=== PATIENT | male | born 1940 | race Caucasian/White ===

== ENCOUNTER 2016-02-24 11:12 | Inpatient (IN) ==
--- NOTE | 2016-02-24 11:35 | Emergency Department Note ---
Disposition Clinical Impression: Falls, Confusion Chest pain Qualifiers: Chest pain type: unspecified Qualified Code(s): R07.9 - Chest pain, unspecified Disposition: Admitted As Inpatient Condition: Good General Adult HPI - General Chief complaint: ED Chest Pain Stated complaint: CP x3 months Time Seen by Provider: 02/24/16 11:27 Source: patient Limitations: no limitations Nursing Notes Reviewed: Yes Vital Signs Reviewed: Yes - History of Present Illness Pain Scale: 7 - Related Data Home Medications Medication Instructions Recorded Confirmed Amlodipine [Norvasc] 5 mg PO DAILY 02/24/16 02/24/16 Aspirin [Lo-Dose Aspirin EC] 81 mg PO DAILY 02/24/16 02/24/16 Donepezil [Aricept] 10 mg PO DAILY 02/24/16 02/24/16 Gabapentin [Neurontin] 300 mg PO BID 02/24/16 02/24/16 HYDROcodone/Acet 5/325 mg [[place] 1 tab PO TID PRN 02/24/16 02/24/16 5-325 mg] Insulin Glargine,Hum.rec.anlog 20 unit SQ HS 02/24/16 02/24/16 [Lantus Solostar] Metoprolol XL (24 HR) Succ [Toprol 25 mg PO DAILY 02/24/16 02/24/16 XL] [place]-3 Fatty Acids [Fish Oil] 300 mg PO DAILY 02/24/16 02/24/16 Pravastatin Sodium [Pravachol] 80 mg PO DAILY 02/24/16 02/24/16 Sertraline [Zoloft] 100 mg PO DAILY 02/24/16 02/24/16 Tizanidine HCl [Zanaflex] 2 mg PO BID 02/24/16 02/24/16 TraZODone 100 mg PO HS 02/24/16 02/24/16 Allergies Allergy/AdvReac Type Severity Reaction Status Date / Time No Known Allergies Allergy Verified 09/28/14 14:09 Past Medical History - Past Medical History Medical history: Reports: diabetes, hypertension Surgical history: Reports: appendectomy Psychiatric history: Reports: no psych history - Social History Smoking Status: Former smoker Smokeless Tobacco Status: No Alcohol use: Reports: none Drug use: Reports: none Physical Exam - General Limitations: no limitations General appearance: alert, in no apparent distress Course Vital Signs Temperature 98.6 F 02/24/16 11:15 Pulse Rate 69 02/24/16 11:15 Respiratory Rate 18 02/24/16 11:15 Blood Pressure 179/79 02/24/16 11:15 O2 Sat by Pulse Oximetry 95 02/24/16 11:15 Temperature 98.4 F 02/24/16 16:40 Pulse Rate 67 02/24/16 16:40 Respiratory Rate 16 02/24/16 16:40 Blood Pressure 148/81 02/24/16 16:40 O2 Sat by Pulse Oximetry 94 L 02/24/16 16:40 Oxygen Delivery Oxygen Delivery Room Air Medical Decision Making - MDM Narrative Medical decision making narrative: I examined this patient and my medical decision-making was reviewed with the ASSOCIATE PROFESSOR OF THEATRE/PA/Advanced Practice Nurse/Resident Physician. I agree with the documented findings, disposition and treatment plan as described except to the extent set forth below. Patient arrives today with intermittent chest management going on for about 3 months. Thinks he has a history of leukemia which he failed to tell some bowel. Follows with the oncology clinic here. He has CLL. He also complains of weakness which is generalized weakness which is had the past do not think he has a cardiac history as far as [place] but he has had a Holter monitor he describes does see cardiology here. He does not do much at home according to him so he does not know his chest pains only with exertion or not no pain currently. I do a cardiac workup on him also check LFTs CBC since he has the CLL and then reassess. He takes currently takes aspirin. Patient's agreement with this plan. 1131 hrs.: Patient has sinus rhythm with occasional PVCs. Does have a rate of 62, MS of 181, QRS is 97, QTC is 419, no signs of acute ischemia, compared this with an EKG that was done back in about a week ago and shows no changes except for rate. Chest X-Ray 02/24/16 11:25 IMPRESSION: 1. No acute cardiopulmonary disease. 2. Stable cardiomegaly. D/ / Elodia Egan MD / Elodia Egan MD Interpreting Provider: Elodia Egan MD 1250 hrs.: Patient's having a little bit of heartburn. He says the same Pain he has been having. His troponins negative I think this might be more GI he says that he like to try some Maalox which we did. That made him feel better. Thinking probably go home her and talk to him and family about going home versus staying in the hospital and see which they would prefer. 1400 hrs.: Talk to the patient at length he is worried regarding sending him home. He said he feels very foggy I think it may be due to medication is returning else looks good he did have an MRI of his head done recently that was apparently negative. He has had an MRI of his spine yesterday does not know the results of that I got him up and walking is little bit ataxic he tends to lean to the left and he has difficulty with his right foot. Is no foot drop however. He remained chest pain he said the Maalox helped his heartburn but notes back again. He is frustrated because he does not know who to follow up with the has multiple doctors but each one is a specialist and not really covering his problem. I think he might benefit for admission here with his chest pain on this been intermittent and also this confusion cloudiness and difficulty ambulating. He said he will would like to come in the hospital as he just does not know who to follow up with if we would send him home. We will speak to the hospitalist about this also. 1430 hrs.: Reviewed patient's MRI and he does have disc disease mainly on the right lumbar spine area. Maybe this is causing some of his difficulty with walking. We will go ahead and speak with hospitalist about admission. - Lab Data Result diagrams: 02/24/16 11:44 02/24/16 11:44 Lab Results 02/24/16 02/24/16 02/24/16 Range/Units 11:44 11:44 11:44 WBC 55.9 H* (4.3-11.1) K/mcL RBC 5.13 (4.19-5.50) M/mcL Hgb 14.2 (12.9-16.9) g/dL Hct 43.8 (37.5-50.1) % MCV 85.4 (83.0-100.0) fL MCH 27.7 L (28.0-33.3) pg MCHC 32.4 (31.6-35.5) g/dL RDW 14.6 H (11.5-14.5) % Plt Count 135 L (140-400) K/mcL MPV 11.6 (9.4-12.4) fL Immature Gran % [facility] Seg Neutrophils % 8.0 % Lymphocytes % 92.0 % Monocytes % [facility] Eosinophils % [facility] Basophils % [facility] Neutrophils # 4.5 (1.6-8.9) K/mcL Lymphocytes # 51.4 H (0.6-4.6) K/mcL Monocytes # [facility] Eosinophils # [facility] Basophils # [facility] Platelet Estimate Decreased L (Normal) Sodium 135 L (136-145) mEq/L Potassium 4.7 H (3.5-4.5) mEq/L Chloride 104 (98-109) mEq/L Carbon Dioxide 23 (19-29) mEq/L BUN 25 (8-26) mg/dL Creatinine 1.44 H (0.72-1.25) mg/dL Est GFR ( Amer) 58 L (> 60) Est GFR (Non-Af Amer) 48 L (> 60) BUN/Creatinine Ratio 17 (6-26) Glucose 177 H (70-99) mg/dL Calculated Osmolality 289 (280-300) Calcium 9.2 (8.6-10.8) mg/dL Total Bilirubin 0.6 (0.2-1.2) mg/dL Direct Bilirubin 0.3 (0.0-0.5) mg/dL Indirect Bilirubin 0.3 (0.0-1.2) mg/dL AST 26 (5-34) Units/L ALT 23 (0-55) Units/L Alkaline Phosphatase 75 (38-126) Units/L Troponin I 0.02 (0-0.03) ng/mL Serum Total Protein 7.1 (6.0-8.3) g/dL Albumin 4.1 (3.5-5.0) g/dL Globulin 3.0 (2.4-3.5) g/dL Albumin/Globulin Ratio 1.4 (1.1-2.2)
[2016-02-24 11:49] LABS: Hematocrit 43.8 % (37.5-50.1); Hemoglobin 14.2 g/dL (12.9-16.9); Mean Corpuscular HGB Conc 32.4 g/dL (31.6-35.5); Mean Corpuscular Hemoglobin 27.7 pg (28.0-33.3); Mean Corpuscular Volume 85.4 fL (83.0-100.0); Mean Platelet Volume 11.6 fL (9.4-12.4); Platelet Count 135 K/mcL (140-400); Red Blood Count 5.13 M/mcL (4.19-5.50); Red Cell Distribution Width 14.6 % (11.5-14.5)
[2016-02-24 12:07] LABS: Albumin 4.1 g/dL (3.5-5.0); Albumin/Globulin Ratio 1.4 (1.1-2.2); Bilirubin,Direct 0.3 mg/dL (0.0-0.5); Bilirubin,Indirect 0.3 mg/dL (0.0-1.2); Bilirubin,Total 0.6 mg/dL (0.2-1.2); Calcium 9.2 mg/dL (8.6-10.8); Potassium 4.7 mEq/L (3.5-4.5); Total Protein 7.1 g/dL (6.0-8.3)
[2016-02-24 12:12] LABS: Neutrophils # 4.5 K/mcL (1.6-8.9)
[2016-02-24 12:13] LABS: Lymphocytes # 51.4 K/mcL (0.6-4.6)
[2016-02-24 12:15] LABS: Platelet Estimate Decreased (Normal)
[2016-02-24] MEDS ORDERED: Mag Hydrox/Al Hydrox/Simeth 30 ML UDC PO ONE (12:39)
--- NOTE | 2016-02-24 13:49 | Emergency Department Note ---
Disposition Clinical Impression: Confusion Chest pain Qualifiers: Chest pain type: unspecified Qualified Code(s): R07.9 - Chest pain, unspecified Falls Qualifiers: Encounter type: initial encounter Qualified Code(s): W19.XXXA - Unspecified fall, initial encounter Disposition: Admitted As Inpatient Condition: Good General Adult HPI - General Chief complaint: ED Chest Pain Stated complaint: CP x3 months Time Seen by Provider: 02/24/16 11:27 Source: patient Limitations: no limitations Nursing Notes Reviewed: Yes Vital Signs Reviewed: Yes - History of Present Illness HPI Narrative: Patient here for evaluation of chest pain. Patient states that he has got left- sided chest pain that is sharp and has been going on for 3 months. Patient states this pain is not necessarily better or worse with exertion and is just there. Patient states that he has been here for workup has been negative and sent home in the past. Patient states he was recently here for stroke and was sent home. Patient states that the chest pain is not otherwise described wall and is not otherwise able to offer any helpful information. Pain Scale: 8 - Related Data Home Medications Medication Instructions Recorded Confirmed Amlodipine [Norvasc] 5 mg PO DAILY 02/24/16 02/24/16 Aspirin [Lo-Dose Aspirin EC] 81 mg PO DAILY 02/24/16 02/24/16 GlipiZIDE [Glipizide Xl] 5 PO DAILY 02/24/16 HYDROcodone/Acet 10/325 mg [[place] 1 tab PO Q6HR PRN 02/24/16 02/24/16 10-325 mg] Insulin Glargine,Hum.rec.anlog 100 unit SQ 02/24/16 02/24/16 [Lantus Solostar] Insulin Glargine,Hum.rec.anlog 100 unit SQ DAILY 02/24/16 02/24/16 [Lantus Solostar] Lisinopril [Zestril] 10 mg PO DAILY 02/24/16 02/24/16 Metoprolol [Lopressor] 25 mg PO DAILY 02/24/16 02/24/16 [place]-3 Fatty Acids [Fish Oil] 300 mg PO 02/24/16 02/24/16 Sertraline [Zoloft] 100 mg PO DAILY 02/24/16 02/24/16 TraZODone 100 mg PO HS 02/24/16 02/24/16 Allergies Allergy/AdvReac Type Severity Reaction Status Date / Time No Known Allergies Allergy Verified 09/28/14 14:09 Constitutional: Denies: fever, chills, weakness Eyes: Denies: eye pain ENT ED: Denies: ear pain Cardiovascular: Reports: chest pain Respiratory: Denies: cough Gastrointestinal: Denies: abdominal pain Genitourinary: Denies: urgency, dysuria Musculoskeletal: Denies: back pain Integumentary: Denies: rash, abrasion Neurological: Denies: headache, weakness Psychiatric: Denies: anxiety Endocrine: Denies: fatigue Past Medical History - Past Medical History Medical history: Reports: diabetes, hypertension Surgical history: Reports: appendectomy Psychiatric history: Reports: no psych history - Social History Smoking Status: Former smoker Smokeless Tobacco Status: No Alcohol use: Reports: none Drug use: Reports: none Physical Exam - General Limitations: no limitations General appearance: alert, in no apparent distress - Head Head exam: atraumatic - Eye Eye exam: Present: normal appearance - ENT ENT exam: normal exam - Neck Neck exam: Present: normal inspection, full ROM - Chest Chest inspection: Present: normal inspection, symmetric chest wall rise. Absent : tenderness - Respiratory Respiratory exam: Present: normal lung sounds bilaterally. Absent: respiratory distress - Cardiovascular Cardiovascular exam: Present: regular rate, normal rhythm - Abdominal Exam Abdominal exam: Present: soft, Non-Tender - Extremities Exam Extremities exam: Present: normal inspection, full ROM - Back Exam Back exam: Present: normal inspection, full ROM, tenderness - Neurological Exam Neurological exam: Present: alert, oriented X3, CN II-XII intact, normal gait. Absent: motor sensory deficit - Psychiatric Psychiatric exam: Present: normal affect, normal mood - Skin Skin exam: Present: warm, dry Course - Reevaluation(s) Reevaluation #1: Patient asking for something for his heartburn. Patient notified of negative workup at this time. Patient had a recent cardiac workup that was negative for acute ischemia or infarction. Medical records also showed this patient has leukemia which she did not mention during the initial history. Patient states that nobody is "doing a damn thing". Upon review of his records is apparent that she has stable CLL that they are monitoring. Nobody has had any recent medication changes that would cause these symptoms. Upon reevaluation of the patient patient states that she feels like he is on a cloud feels like he is having trouble walking and he feels that he is unsafe to go home. Patient states that none of these symptoms are new previous to his extensive workup at this facility however at this time he says that he can no longer go on living at home with this feeling. Patient is not homicidal or suicidal at this time. He is just tired of being sick. Reevaluation #2: Maalox improved patient's symptoms significantly however they have returned. The patient states that he has fallen several times and with mental cloudiness - he cannot go home. The patients symptoms have undergone extensive workup in the past several weeks and has been found to have disk and degenerative disease on the right possibly explaining symptoms and unsteadiness on feet. Patient will need further evaluation of the hospital. - Consultations Consultation #1: Discussed with Dr. Morales. At this time requested to speak with Dr. Jameson regarding admission. The patient was accepted for admission. See attending note. Vital Signs Temperature 98.6 F 02/24/16 11:15 Pulse Rate 69 02/24/16 11:15 Respiratory Rate 18 02/24/16 11:15 Blood Pressure 179/79 02/24/16 11:15 O2 Sat by Pulse Oximetry 95 02/24/16 11:15 Temperature 98.6 F 02/24/16 11:15 Pulse Rate 69 02/24/16 14:12 Respiratory Rate 16 02/24/16 14:12 Blood Pressure 168/87 02/24/16 14:12 O2 Sat by Pulse Oximetry 97 02/24/16 14:12 Oxygen Delivery Oxygen Delivery Room Air Medical Decision Making - Lab Data Result diagrams: 02/24/16 11:44 02/24/16 11:44 Lab Results 02/24/16 02/24/16 02/24/16 Range/Units 11:44 11:44 11:44 WBC 55.9 H* (4.3-11.1) K/mcL RBC 5.13 (4.19-5.50) M/mcL Hgb 14.2 (12.9-16.9) g/dL Hct 43.8 (37.5-50.1) % MCV 85.4 (83.0-100.0) fL MCH 27.7 L (28.0-33.3) pg MCHC 32.4 (31.6-35.5) g/dL RDW 14.6 H (11.5-14.5) % Plt Count 135 L (140-400) K/mcL MPV 11.6 (9.4-12.4) fL Immature Gran % [employer] Seg Neutrophils % 8.0 % Lymphocytes % 92.0 % Monocytes % [employer] Eosinophils % [employer] Basophils % [employer] Neutrophils # 4.5 (1.6-8.9) K/mcL Lymphocytes # 51.4 H (0.6-4.6) K/mcL Monocytes # [employer] Eosinophils # [employer] Basophils # [employer] Platelet Estimate Decreased L (Normal) Sodium 135 L (136-145) mEq/L Potassium 4.7 H (3.5-4.5) mEq/L Chloride 104 (98-109) mEq/L Carbon Dioxide 23 (19-29) mEq/L BUN 25 (8-26) mg/dL Creatinine 1.44 H (0.72-1.25) mg/dL Est GFR ( Amer) 58 L (> 60) Est GFR (Non-Af Amer) 48 L (> 60) BUN/Creatinine Ratio 17 (6-26) Glucose 177 H (70-99) mg/dL Calculated Osmolality 289 (280-300) Calcium 9.2 (8.6-10.8) mg/dL Total Bilirubin 0.6 (0.2-1.2) mg/dL Direct Bilirubin 0.3 (0.0-0.5) mg/dL Indirect Bilirubin 0.3 (0.0-1.2) mg/dL AST 26 (5-34) Units/L ALT 23 (0-55) Units/L Alkaline Phosphatase 75 (38-126) Units/L Troponin I 0.02 (0-0.03) ng/mL Serum Total Protein 7.1 (6.0-8.3) g/dL Albumin 4.1 (3.5-5.0) g/dL Globulin 3.0 (2.4-3.5) g/dL Albumin/Globulin Ratio 1.4 (1.1-2.2)
[2016-02-24] MEDS ORDERED: Naloxone 0.4 MG/ML INJ IVP PRN (15:57)
[2016-02-24] MEDS ORDERED: Acetaminophen 325 MG TABLET PO PRN (15:57)
[2016-02-24] MEDS ORDERED: Dextrose Gel 15 GM PO PRN ×2 (16:02)
[2016-02-24] MEDS ORDERED: *HR* Dextrose 50 % in Water (Syg) 50 ML SYRINGE IVP PRN (16:02)
[2016-02-24] MEDS ORDERED: D5% in Water 1,000 ML IV PRN (16:02)
--- NOTE | 2016-02-24 16:44 | Internal Med History&Physical ---
<Gracie Pace - Last Filed: 02/24/16 17:46> Date of Encounter: 02/24/16 Time of Encounter: 16:29 Assessment and Plan (1) Chest pain Current visit: Yes Status: Acute Patient presented with complaints of chest pressure on and off for last several months. 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 EKG with no changes, initial troponin negative. CXR with no acute cardiopulmonary disease. denies SOB. continuous reclaimer and pulse oximetry serial troponins titrate O2 to maintain O2 sat > 92% Qualifiers: Chest pain type: precordial chest pain Qualified Code(s): R07.2 - Precordial pain (2) Altered mental status Current visit: Yes Status: Acute Patient reporting "fogginess", when asked what that meant, he stated he felt like he "wasn't all there" He is complaining of poor sleep, bad dreams, lip tingling, ear ringing and chronic left leg weakness. On assessment, he is A & O x 3. Neurological exam grossly normal. He has had extensive imaging work up previously for similar symptoms. Patient reports he hasn't been eating well recently. His symptoms may be related to dehydration, polypharmacy, vitamin deficiencies, less likely due to infection . Will give him IV fluids for hydration. Will hold his trazodone, zanaflex, neurontin, and aricept. will check vitamin B12, folate, TSH, RPR. Qualifiers: Altered mental status type: unspecified Qualified Code(s): R41.82 - Altered mental status, unspecified (3) Accelerated essential hypertension Current visit: Yes Status: Acute Blood pressure on arrival to ED was 179/79, and continued to be elevated with 165/115, 151/94. It has come down to 141/84. He is on a continuous reclaimer. Continue home dose of metoprolol and amlodipine (4) Chronic lymphocytic leukemia (CLL), B-cell Current visit: No Status: Chronic Following with oncology every 6 months. Stable WBC count. Qualifiers: Leukemia Active/Remission status: without remission Qualified Code(s): C91.10 - Chronic lymphocytic leukemia of B-cell type not having achieved remission (5) DVT prophylaxis Current visit: Yes Status: Acute encourage ambulation with assistance anti-embolic stockings heparin 5,000u SQ BID Internal Medicine - H&P: HPI Chief complaint: chest pain, altered mental status Admitted From: Emergency Dept Plans for Post Hospital Care: Home History of present illness: Mr. Vidal is a 75 year old male with history of HTN, type 2 diabetes, CLL ( stable), CKD3, who presented to the ED with complaints of Chest pain on and off for the last 3 months, as well as difficulty walking for several months. He has presented to the ED with similar complaints several times. He reports he has chest pain, described as pressure, on and off, not associated or relieved by anything that he can articulate. He has been following with Dr. Mcclelland in cardiology and has had recent stress test and abarca monitor. His EKG in the ED showed no changes from previous and his initial troponin was negative at 0.02. He also complains of difficulty walking with left leg weakness. This has also been going on for several months, and he has had a work up including MRI of the spine, MRI of the head, MRA of head and neck. The MRI of the spine showed lumbar disc disease which explain his symptom of left leg weakness. MRI of head showed no acute abnormality, stable diffuse parenchymal volume loss and moderate chronic white matter microvascular changes. He was referred to [facility] on previous encounters and reports he does follow with them. He is reporting lip tingling on and off and bilateral ear ringing on and off, also going on for about a month. He complains of feeling "foggy" and lightheaded at times. He denies any falls or loss of consciousness. He denies any fever, chills, sweats, body aches. He reports he has not been sleeping well and when he does sleep, he has crazy dreams. On exam, he is alert and oriented x 3, pleasant, lungs clear bilaterally, heart with regular rate and rhythm. He did not have pronator drift, negative romberg sign, he did lean left while walking but did not appear to have any balance issues. Past Med Surg Social Fam HX - Past Medical History Medical history: cancer (CLL), dementia, diabetes, hypertension, renal disease Psychiatric history: depression - Past Surgical History Surgical History: appendectomy, orthopedic, other (spinal fusion) - Social History Smoking Status: Former smoker Smokeless Tobacco Status: No Alcohol use: none Drug use: none - Family History Mother Living Status: Hx Family Cardiac Disorders: Yes (HTN) Internal Medicine - H&P: Meds Amlodipine [Norvasc] 5 mg PO DAILY 02/24/16 [History] Aspirin [Lo-Dose Aspirin EC] 81 mg PO DAILY 02/24/16 [History] Donepezil [Aricept] 10 mg PO DAILY 02/24/16 [History] Gabapentin [Neurontin] 300 mg PO BID 02/24/16 [History] HYDROcodone/Acet 5/325 mg [[place] 5-325 mg] 1 tab PO TID PRN 02/24/16 [History] Insulin Glargine,Hum.rec.anlog [Lantus Solostar] 20 unit SQ HS 02/24/16 [History ] Metoprolol XL (24 HR) Succ [Toprol XL] 25 mg PO DAILY 02/24/16 [History] [place]-3 Fatty Acids [Fish Oil] 300 mg PO DAILY 02/24/16 [History] Pravastatin Sodium [Pravachol] 80 mg PO DAILY 02/24/16 [History] Sertraline [Zoloft] 100 mg PO DAILY 02/24/16 [History] Tizanidine HCl [Zanaflex] 2 mg PO BID 02/24/16 [History] TraZODone 100 mg PO HS 02/24/16 [History] Allergies No Known Allergies Allergy (Verified 09/28/14 14:09) All Systems PM: A 10-system review of systems was performed and is negative for pertinent findings except as documented above in the HPI. - Constitutional Constitutional: weakness, no chills, no fever(s), no night sweats - EENT Eyes: no change in vision, no discharge, no pain, no photophobia Ears: tinnitus Nose, mouth and throat: no dysphagia, no nasal discharge, no neck pain, no sore throat - Cardiovascular Cardiovascular ROS IM: chest pain, lightheadedness, no diaphoresis, no dyspnea, no palpitations, no syncope - Respiratory Respiratory: no cough, no dyspnea, no wheezing, no excessive phlegm production - Gastrointestinal Gastrointestinal: no abdominal pain, no diarrhea, no hematemesis, no hematochezia, no melena, no nausea, no vomiting - Musculoskeletal Musculoskeletal ROS IM: numbness, tingling Additional comments: reports tingling in his lips and numbness and tingling in BLE - chronic - Integumentary Integumentary IM: no rash, no unusual bruising - Neurological Neurological ROS: abnormal gait (leaning left), focal weakness (left leg), tingling (in his lips), no confusion, no convulsions, no numbness, no tremor(s) - Hematologic/Lymphatic Hematologic/Lymphatic: no easy bruising - Constitutional Vitals: Temp Pulse Resp BP Pulse Ox 98.6 F 69 18 141/84 97 02/24/16 11:15 02/24/16 14:12 02/24/16 15:28 02/24/16 15:28 02/24/16 14:12 General appearance: Present: A&O X 3, pleasant, no acute distress - Head Head exam: Present: atraumatic, normocephalic - Eye Eye exam: Present: PERRL, conjuntiva pink, sclera anicteric Pupils: Present: PERRL - Neck Neck exam general surgery: Present: supple, trachea midline. Absent: lymphadenopathy - Respiratory Respiratory exam: Present: CTAB. Absent: accessory muscle use, rales, rhonchi, wheezes - Cardiovascular Cardiovascular exam: Present: RRR, +S1, +S2. Absent: diastolic murmur, gallop, rubs, systolic murmur - GI/Abdominal GI/Abdominal exam: Present: normal bowel sounds, soft, no peritoneal signs. Absent: distended, tenderness - Extremities Exam Extremities exam: Present: warm, radial pulses palpable and symetrical. Absent : calf tenderness, cyanotic, pedal edema - Neurological Exam Neurological exam: Present: CN II-XII intact, oriented X3, no focal deficits. Absent: pronater drift, facial droop, speech deficit - Expanded Neurological Exam Cranial Nerves: EOM's intact PM: Normal, gag reflex PM: Normal, tongue deviation PM: Normal Cerebellar function: finger to nose: Normal, Romberg: Normal - Skin Skin exam: Present: dry, intact Internal Med - H&P Results - Labs CBC & Chem 7: 02/24/16 11:44 02/24/16 11:44 <Mauro Morales - Last Filed: 02/24/16 18:46> Date of Encounter: 02/24/16 Internal Medicine - H&P: HPI History of present illness: Mr. Vidal is a 75 year old male All Systems PM: A 10-system review of systems was performed and is negative for pertinent findings except as documented above in the HPI. - Constitutional Vitals: Temp Pulse Resp BP Pulse Ox 98.4 F 67 16 148/81 94 L 02/24/16 16:40 02/24/16 16:40 02/24/16 16:40 02/24/16 16:40 02/24/16 16:40 Internal Med - H&P Results - Labs CBC & Chem 7: 02/24/16 11:44 02/24/16 11:44 - Attending Attestation I have seen and examined this patient independently. I have discussed the case with the Nurse Practitioner, Gracie Pace. I agree with the data gathering in the HPI, physical examination findings, assessment and plan as documented by our HOUSEHOLD APPLIANCE INSTALLER. Chest pain ongoing for 3 months and possible side effects of polypharmacy alog with uncontrolled HTN.
[2016-02-24] MEDS: Insulin LISPRO 300 UNITS/3 ML VIAL SQ SCH (17:02)
[2016-02-24 17:35] LABS: Magnesium 1.9 mg/dL (1.6-2.6); Phosphorous 3.3 mg/dL (2.3-4.7)
[2016-02-24] MEDS ORDERED: 0.9 % Sodium Chloride 1,000 ML IVC SCH (17:45)
[2016-02-24] MEDS: *HR* Heparin 5,000 UNIT/ML VIAL SQ SCH (18:12)
[2016-02-24 19:36] LABS: Folate 18.1 ng/mL (7.0-31.4)
[2016-02-24] MEDS ORDERED: Ondansetron ODT 4 MG TAB.RAPDIS SL PRN (19:51)
[2016-02-24] MEDS ORDERED: Insulin DETEMIR 100 UNIT/ML X5UNITS SQ SCH (21:00)
[2016-02-24] MEDS ORDERED: Insulin LISPRO 300 UNITS/3 ML VIAL SQ SCH (21:00)
[2016-02-24] MEDS ORDERED: Gabapentin 300 MG CAPSULE PO SCH (21:00)
[2016-02-24] MEDS ORDERED: traZODone 50 MG TABLET PO SCH ×2 (21:00→21:15)
[2016-02-24] MEDS ORDERED: tiZANidine 4 MG TABLET PO SCH (21:00)
[2016-02-24] MEDS ORDERED: GI Cocktail 40 ML EACH PO ONE (22:07)
[2016-02-24] MEDS: *HR* HYDROcodone/Acet 5/325 mg TABLET PO PRN (22:29)
[2016-02-25 00:27] LABS: Eosinophils % 0.1 %; Immature Granulocytes % 0.2 % (0-4); Platelet Count 118 K/mcL (140-400); Red Cell Distribution Width 14.6 % (11.5-14.5)
[2016-02-25 00:29] LABS: Basophils # 0.1 K/mcL (0.0-0.2); Basophils % 0.2 %; Hematocrit 38.7 % (37.5-50.1); Hemoglobin 12.5 g/dL (12.9-16.9); Immature Platelets 8.9 % (1.1-6.1); Lymphocytes # 36.7 K/mcL (0.6-4.6); Lymphocytes % 86.7 %; Mean Corpuscular HGB Conc 32.3 g/dL (31.6-35.5); Mean Corpuscular Hemoglobin 28.2 pg (28.0-33.3); Mean Corpuscular Volume 87.4 fL (83.0-100.0); Mean Platelet Volume 11.6 fL (9.4-12.4); Monocytes % 2.2 %; Red Blood Count 4.43 M/mcL (4.19-5.50); Segmented Neutrophils % 10.6 %
[2016-02-25 00:30] LABS: Monocytes # 0.9 K/mcL (0.0-1.3); Neutrophils # 4.5 K/mcL (1.6-8.9)
[2016-02-25 00:39] LABS: Calcium 8.4 mg/dL (8.6-10.8); Potassium 4.1 mEq/L (3.5-4.5)
[2016-02-25 00:44] LABS: Platelet Estimate Slight Decrease (Normal); Reactive Lymphocytes Present (Not Present); Smudge Cells Present (Not Present)
[2016-02-25 00:45] LABS: Basophilic Stippling 1+ (Not Present); Polychromasia 1+ (Not Present)
[2016-02-25] MEDS: *HR* HYDROcodone/Acet 5/325 mg TABLET PO PRN (04:09)
[2016-02-25] MEDS: *HR* Heparin 5,000 UNIT/ML VIAL SQ SCH (05:54)
[2016-02-25 07:31] VITALS: BP 138/76
[2016-02-25] MEDS ORDERED: Tetrahydrozoline 15 ML BOTTLE LEFT EYE PRN (08:09)
[2016-02-25] MEDS ORDERED: Tetrahydrozoline 15 ML BOTTLE RIGHT EYE PRN (08:09)
[2016-02-25] MEDS ORDERED: Sucralfate 1 GM TABLET PO SCH (08:30)
[2016-02-25] MEDS ORDERED: Aspirin Enteric Coated 81 MG Tablet PO SCH (09:00)
[2016-02-25] MEDS ORDERED: amLODIPine 5 MG TABLET PO SCH (09:00)
[2016-02-25] MEDS ORDERED: Gabapentin 300 MG CAPSULE PO SCH (09:00)
[2016-02-25] MEDS ORDERED: Thiamine (B-1) 100 MG TABLET PO SCH (09:00)
[2016-02-25] MEDS ORDERED: Metoprolol XL (24 HR) Succ 25 MG TAB.ER.24H PO SCH (09:00)
[2016-02-25] MEDS ORDERED: (Omega-3 Fatty Acids [Fish Oil] 300 MG) PO SCH (09:00)
--- NOTE | 2016-02-25 09:43 | Cardiology Consult Note ---
Date of Encounter: 02/25/16 Time of Encounter: 09:00 Assessment and Plan (1) Chest pain Current Visit: Yes Status: Acute C/o chronic atypical chest pain symptoms that have increased over the last week. Agree with adding PPI to medication regimen. Describes discomfort after eating. Recent cardiac work-up negative. Troponin negative x 3. EKG shows NSR with no ST changes. No further cardiac testing recommended at this time. Continue toprol XL for history of NSVT and SVT seen on holter earlier this year. Out-pt f/u with Dr. Reich in 2 weeks. Qualifiers: Chest pain type: precordial chest pain Qualified Code(s): R07.2 - Precordial pain (2) NSVT (nonsustained ventricular tachycardia) Current Visit: No Status: Chronic 24 hour telemetry review shows NSR-SB. Avg HR 62 BPM. Occasional HR as low as 46 bpm during nocturnal hours. No pauses. No recurrent NSVT seen. Max HR 95 bpm. (3) SVT (supraventricular tachycardia) Current Visit: Yes Status: Acute Discussion w patient/family: The assessment and plan as outlined above was discussed with the patient and/or family members who expressed understanding and agreement. All questions were answered. Thank you for involving us in the care of your patient. Please call with any questions. History of Present Illness Consult date: 02/25/16 Consult reason: Chest pain Chief complaint: Chest pain History of present illness: Mr. Vidal is a 75 year old male with a past medical history of NSVT, SVT, essential hypertension, CLL, diabetes mellitus, CKD and hypertriglyceridemia. He presents with intermittent chest pain over the last three months. His pain is left sided to mid-sternal associated with mid-sternal burning occurring at rest. He denies exertional chest pain. He does think it is in relation to eating. His pain started shortly after eating [employer] his daughter brought him yesterday. He also noticed burning in his throat this morning after drinking coffee this morning. His discomfort was relieved with a GI cocktail. He also has multiple other chronic complaints including chronic back pain, difficulty walking, numbness in his lips when he has high blood sugars, and lack of appetite. He feels he had increased in overall symptoms after starting a new medication. He was started on three new medications around the same time including toprol XL for NSVT. Previous cardiac testing: Holter monitor 09/15/2015 demonstrated sinus rhythm with one 12 beat episode of nonsustained ventricular tachycardia. Frequent PACs and occasional episodes of SVT were noted as well, longest SVT 24 beats. An echocardiogram obtained on 09/15/2015 demonstrated an EF of 65%, mild concentric LVH, mild AI, and probable severe pulmonary hypertension. Lexiscan nuclear stress test 09/28/2015: EF 63%. Imaging negative for ischemia or prior infarct. Past Med Surg Social Fam HX - Past Medical History Medical history: cancer (CLL), dementia, diabetes, hypertension, renal disease, SVT, other (NSVT) Psychiatric history: depression - Past Surgical History Surgical History: appendectomy, orthopedic, other (spinal fusion) - Social History Smoking Status: Former smoker Smokeless Tobacco Status: No Alcohol use: none Drug use: none - Family History Mother Living Status: Hx Family Cardiac Disorders: Yes (HTN) Medications and Allergies Amlodipine [Norvasc] 5 mg PO DAILY 02/24/16 [History] Aspirin [Lo-Dose Aspirin EC] 81 mg PO DAILY 02/24/16 [History] Donepezil [Aricept] 10 mg PO DAILY 02/24/16 [History] Gabapentin [Neurontin] 300 mg PO BID 02/24/16 [History] HYDROcodone/Acet 5/325 mg [[place] 5-325 mg] 1 tab PO TID PRN 02/24/16 [History] Insulin Glargine,Hum.rec.anlog [Lantus Solostar] 20 unit SQ HS 02/24/16 [History ] Metoprolol XL (24 HR) Succ [Toprol XL] 25 mg PO DAILY 02/24/16 [History] [place]-3 Fatty Acids [Fish Oil] 300 mg PO DAILY 02/24/16 [History] Pravastatin Sodium [Pravachol] 80 mg PO DAILY 02/24/16 [History] Sertraline [Zoloft] 100 mg PO DAILY 02/24/16 [History] Tizanidine HCl [Zanaflex] 2 mg PO BID 02/24/16 [History] TraZODone 100 mg PO HS 02/24/16 [History] Propylene Glycol/Peg 400 [Lubricant Eye Drops] 15 ml OP TID 02/25/16 [History] Allergies No Known Allergies Allergy (Verified 09/28/14 14:09) All Systems Review: A 10-system review of systems was performed and is negative for pertinent findings except as documented above in the HPI. Physical Examination Vital Signs, Last 4 Hours Temp Pulse Resp BP Pulse Ox 02/25/16 07:31 98.3 F 61 14 138/76 95 General: Conversant, No Apparent Distress HEENT: Atraumatic, Normocephaly, Mucus Membranes Moist Neck: No JVD, Normal carotid pulses Cardiac: Reg Rate and Rhythm, Normal S1 and S2, No Murmur Lungs: Normal Breath Sounds, No Wheeze, Rales, Rhonchi Neuro: Alert and responsive, No focal deficits noted Abdomen: Soft, Non-Tender Skin: No rashes noted on visualized skin Musculoskeletal: No Chest Wall Tenderness Extremities: No Clubbing, No Cyanosis, No Edema, Normal Pulses Results 02/25/16 00:20 02/25/16 00:20 Lab Results 02/24/16 02/25/16 02/25/16 18:36 00:20 00:20 WBC 42.3 H* Hgb 12.5 L D Hct 38.7 Plt Count 118 L Sodium Potassium Chloride Carbon Dioxide BUN Creatinine Glucose Calcium Troponin I 0.02 TSH 0.924 02/25/16 00:20 WBC Hgb Hct Plt Count Sodium 136 Potassium 4.1 Chloride 104 Carbon Dioxide 25 BUN 25 Creatinine 1.55 H Glucose 162 H Calcium 8.4 L Troponin I TSH - Imaging and Cardiology Stress Test: report reviewed Echo: report reviewed Cardiac cath: report reviewed - EKG Interpretation EKG results cardiology: personally reviewed (SR with no ST changes.) Consult Discharge Plan - Plan Referrals: Yaa Nathan AND [employer] [Primary Care Provider] -
[2016-02-25] MEDS: Insulin LISPRO 300 UNITS/3 ML VIAL SQ SCH (10:11)
[2016-02-25] MEDS ORDERED: Sennosides 8.6 MG TABLET PO SCH (10:15)
--- NOTE | 2016-02-25 10:52 | Discharge Summary ---
Date of Encounter: 02/25/16 Time of Encounter: 10:55 - Discharge Diagnosis (1) Atypical chest pain Priority: Primary Status: Acute (2) Constipation Priority: Secondary Status: Acute Qualifiers: Constipation type: slow transit constipation Qualified Code(s): K59.01 - Slow transit constipation (3) Gastritis Priority: Primary Status: Acute Qualifiers: Gastritis type: unspecified gastritis Gastritis bleeding: without bleeding Qualified Code(s): K29.70 - Gastritis, unspecified, without bleeding (4) Physical deconditioning Priority: Secondary Status: Acute - Discharge Medications Prescriptions: Ergocalciferol (VITAMIN D2) [Drisdol (50,000 Unit)] 50,000 unit PO QWEEK #15 capsule Omeprazole [PriLOSEC] 20 mg PO DAILY #90 capsule.dr Polyethylene Glycol 3350 [MiraLAX] 17 gm PO DAILY PRN #30 powd.pack PRN Reason: Constipation Thiamine (B-1) [Vitamin B-1] 100 mg PO DAILY #90 tablet Tizanidine HCl [Zanaflex] 2 mg PO HS #30 capsule Home Medications: Amlodipine [Norvasc] 5 mg PO DAILY 02/24/16 [History] Aspirin [Lo-Dose Aspirin EC] 81 mg PO DAILY 02/24/16 [History] Donepezil [Aricept] 10 mg PO DAILY 02/24/16 [History] Gabapentin [Neurontin] 300 mg PO BID 02/24/16 [History] HYDROcodone/Acet 5/325 mg [[place] 5-325 mg] 1 tab PO TID PRN 02/24/16 [History] Insulin Glargine,Hum.rec.anlog [Lantus Solostar] 20 unit SQ HS 02/24/16 [History ] Metoprolol XL (24 HR) Succ [Toprol Xl] 25 mg PO DAILY 02/24/16 [History] [place]-3 Fatty Acids [Fish Oil] 300 mg PO DAILY 02/24/16 [History] Pravastatin Sodium [Pravachol] 80 mg PO DAILY 02/24/16 [History] Sertraline [Zoloft] 100 mg PO DAILY 02/24/16 [History] Ergocalciferol (VITAMIN D2) [Drisdol (50,000 Unit)] 50,000 unit PO QWEEK #15 capsule 02/25/16 [Rx] Omeprazole [PriLOSEC] 20 mg PO DAILY #90 capsule. 02/25/16 [Rx] Polyethylene Glycol 3350 [MiraLAX] 17 gm PO DAILY PRN #30 powd.pack 02/25/16 [Rx ] Propylene Glycol/Peg 400 [Lubricant Eye Drops] 15 ml OP TID 02/25/16 [History] Thiamine (B-1) [Vitamin B-1] 100 mg PO DAILY #90 tablet 02/25/16 [Rx] Tizanidine HCl [Zanaflex] 2 mg PO HS #30 capsule 02/25/16 [Rx] TraZODone 50 mg PO HS tablet 02/25/16 [Rx] Allergies/Adverse Reactions: Allergies No Known Allergies Allergy (Verified 09/28/14 14:09) Date of admission: 02/24/16 18:02 Primary care physician: Yaa Nathan CNP Consults: 02/25/16 08:13 Consult to Cardiology [CONS] Routine Comment: Consulting Provider: [facility] Reason for Consult: Chest pain x 3 month Call Completed: No Discharging clinician: Zina Mccall - Patient Status Disposition: Home, Self-Care Condition: Good Functional capacity at discharge: independent ambulation Overall status at discharge: patient is back to baseline - Discharge Instructions Instructions: Omeprazole (By mouth), Thiamine (Vitamin B-1) (By mouth), Tizanidine (By mouth), Polyethylene Glycol 3350 (By mouth), Vitamin B Complex ( By mouth), Vitamin D (By mouth), Chest Pain (GEN), Gastritis (GEN), Fall Prevention (GEN) Follow Up With: Yaa Nathan CNP [Primary Care Provider] - (A web request was made for f/u in 2 weeks. If you don't hear from them in a few days please contact number provided ) Ricky Reich DO [Partnered Physician] - (Web request sent for an appointment ) Additional Instructions: Follow up with cardiology, outpatient physical therapy 3 times a week - Diet and Activity Activity: resume usual activities as tolerated Diet: diabetic diet Hospital course: Mr. Vidal is a 75 year old male with a past medical history of NSVT, SVT, essential hypertension, CLL, diabetes mellitus, CKD and hypertriglyceridemia. He presents with intermittent chest pain over the last three months. His pain is mid-sternal associated with mid-sternal burning occurring at rest. He denies exertional chest pain. He does think it is in relation to eating. His pain started shortly after eating Friday . He also noticed burning in his throat this morning after drinking coffee this morning. His discomfort was relieved with a GI cocktail. He also has multiple other chronic complaints including chronic back pain, difficulty walking . Patient is feeling better today. Patient states he is drinking 2 cups of coffee every morning. Patient denies any shortness of breath or palpitation. Patient denies any orthopnea or paroxysmal nocturnal dyspnea. Patient denies any focal motor or sensory changes. He is complaining of generalized weakness. Patient on multiple medication which can cause drowsiness and physical deconditioning and include Neurontin and Zanaflex. Does was reduced. Need to be titrated down as possible with family doctor. Patient was able to ambulate independent without any brought in today. Protonix was ordered for the patient. Patient was complaining of constipation for last 3 days he was given, uday and . MiraLAX . Last cardiac workup include Holter monitor 09/15/2015 demonstrated sinus rhythm with one 12 beat episode of nonsustained ventricular tachycardia. Frequent PACs and occasional episodes of SVT were noted as well, longest SVT 24 beats. An echocardiogram obtained on 09/15/2015 demonstrated an EF of 65%, mild concentric LVH, mild AI, and probable severe pulmonary hypertension.Lexiscan nuclear stress test 09/28/2015: EF 63%. Imaging negative for ischemia or prior infarct.Troponin negative x 3.EKG shows NSR with no ST changes. Cardiology team evaluated the patient is . He stated No further cardiac testing recommended at this time.Continue toprol XL for history of NSVT and SVT seen on holter earlier this year. Out-pt f/u with Dr. Reich in 2 weeks. I had long discussion with patient about avoiding caffeinated materials. Discussed with patient about exercise and physical therapy home physical therapy. Discussed with staff about scheduling outpatient physical therapy. Discussed about laxatives Ii was ordered as needed as an outpatient. - Time Spent with Patient Total time spent providing and/or coordinating discharge services: - Constitutional Vitals: Temp Pulse Resp BP Pulse Ox 98.3 F 61 14 138/76 95 02/25/16 07:31 02/25/16 07:31 02/25/16 07:31 02/25/16 07:31 02/25/16 07:31 General appearance: Present: A&O X 3, pleasant, no acute distress - Head Head exam: Present: atraumatic, normocephalic - Neck Neck exam general surgery: Present: supple, trachea midline. Absent: lymphadenopathy - Respiratory Respiratory exam: Present: CTAB. Absent: accessory muscle use, rales, rhonchi, wheezes - Cardiovascular Cardiovascular exam: Present: RRR, +S1, +S2. Absent: diastolic murmur, gallop, rubs, systolic murmur - GI/Abdominal GI/Abdominal exam: Present: normal bowel sounds, soft, no peritoneal signs. Absent: distended, tenderness - Neurological Exam Neurological exam: Present: CN II-XII intact, oriented X3, no focal deficits. Absent: pronater drift, facial droop, speech deficit - Skin Skin exam: Present: dry, intact
--- NOTE | 2016-02-26 10:43 | Electrocardiograph Report ---
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
== END 2016-02-25 13:00 | disposition home or self-care (01) | DRG 313 ==
LOC: 3BNU 11:12 → EMEROO 11:12 → 3BNU 15:45
PROVIDERS: ADMIT Internal Medicine; ATTEND Internal Medicine

== ENCOUNTER 2016-06-15 10:40 | Inpatient (IN) ==
[2016-06-15] MEDS ORDERED: 0.9 % Sodium Chloride 1,000 ML IVC ONE (11:10)
--- NOTE | 2016-06-15 11:16 | Emergency Department Note ---
Disposition Clinical Impression: Lower gastrointestinal hemorrhage Disposition: Admitted As Inpatient Condition: Good Referrals: Nhi Lagos MD [Primary Care Provider] - Forms: ED Satisfaction Letter Time of Disposition: 14:53 General Adult HPI - General Chief complaint: ED GI Bleed Stated complaint: rectal bleeding Time Seen by Provider: 06/15/16 10:45 Source: patient Limitations: no limitations Nursing Notes Reviewed: Yes Vital Signs Reviewed: Yes - History of Present Illness HPI Narrative: Patient complaining of 2 episodes of purple colored stool last night and one episode this morning. States he has to clean us from the toilet every time he is to the bathroom. He states that he thinks this is blood clots. States he also has associated feeling of his heart is beating a little faster than normal. He denies racing. He does have a intermittent left-sided chest ache. This has been present for over 3 months. Denies any abdominal pain at this time. States he had one episode of abdominal cramping prior to his first bowel movement last night. Pain Scale: 0 - Related Data Home Medications Medication Instructions Recorded Confirmed Amlodipine [Norvasc] 10 mg PO DAILY 02/24/16 06/04/16 Aspirin [Lo-Dose Aspirin EC] 81 mg PO DAILY 02/24/16 06/04/16 Donepezil [Aricept] 10 mg PO DAILY 02/24/16 06/04/16 Gabapentin [Neurontin] 300 mg PO BID 02/24/16 06/04/16 HYDROcodone/Acet 5/325 mg [Varina 1 tab PO TID PRN 02/24/16 06/04/16 5-325 mg] Insulin Glargine,Hum.rec.anlog 22 unit SQ HS 02/24/16 06/04/16 [Lantus Solostar] Metoprolol XL (24 HR) Succ [Toprol 25 mg PO DAILY 02/24/16 06/04/16 Xl] Bon Aqua-3 Fatty Acids [Fish Oil] 300 mg PO DAILY 02/24/16 06/04/16 Pravastatin Sodium [Pravachol] 80 mg PO DAILY 02/24/16 06/04/16 Sertraline [Zoloft] 100 mg PO DAILY 02/24/16 06/04/16 Ergocalciferol (VITAMIN D2) 2,000 unit PO DAILY 05/22/16 06/04/16 [Vitamin D2] Multivitamin [Multi-Day Vitamins] 1 each PO DAILY 05/22/16 06/04/16 Buspirone HCl [Buspar] 7.5 mg PO BID 06/04/16 06/04/16 Ciclopirox [Penlac] 1 drop TP DAILY 06/04/16 06/04/16 Cinnamon Bark [Cinnamon] 500 mg PO DAILY 06/04/16 06/04/16 Cyclosporine [Restasis] 1 each OP DAILY 06/04/16 06/04/16 Ferrous Sulfate [Iron] 325 mg PO DAILY 06/04/16 06/04/16 Fluticasone Propionate Nasal 1 spray NS BID 06/04/16 06/04/16 [Flonase] HydrALAZINE 25 mg PO BID 06/04/16 06/04/16 Omeprazole [PriLOSEC] 20 mg PO DAILY 06/04/16 06/04/16 Thiamine Mononitrate [Vitamin B-1] 100 mg PO DAILY 06/04/16 06/04/16 Trazodone HCl 100 mg PO HS 06/04/16 06/04/16 Albuterol Sulfate [Proair Hfa] 2 puff IH Q4H PRN 06/15/16 06/15/16 Furosemide [Lasix] 20 mg PO DAILY 06/15/16 06/15/16 Lidocaine Patch [Lidoderm 5% patch] 1 patch TP DAILY 06/15/16 06/15/16 Previous Rx's Medication Instructions Recorded Tizanidine HCl [Zanaflex] 2 mg PO HS #30 capsule 02/25/16 Allergies Allergy/AdvReac Type Severity Reaction Status Date / Time No Known Allergies Allergy Verified 06/04/16 10:05 All systems ED: reviewed and negative except as stated. Constitutional: Denies: fever, chills Cardiovascular: Denies: chest pain, palpitations, edema, syncope Respiratory: Denies: cough, dyspnea Gastrointestinal: Reports: abdominal pain (One episode of cramping prior to his bowel movement last night. None since.), hematochezia (2 episodes of moderate amount of a dark red blood vision describes as purple last night. One episode this morning.). Denies: nausea, vomiting, diarrhea, hematemesis Genitourinary: Denies: dysuria, frequency, hematuria Musculoskeletal: Denies: back pain, neck pain Integumentary: Denies: rash Neurological: Reports: weakness. Denies: headache Hematological/Lymphatic: Reports: easy bruising Past Medical History - Past Medical History Medical history: Reports: cancer, coronary artery disease, dementia, diabetes, hypertension, renal disease, SVT, other Surgical history: Reports: appendectomy, orthopedic, other Psychiatric history: Reports: depression - Social History Smoking Status: Former smoker Smokeless Tobacco Status: No Alcohol use: Reports: none Drug use: Reports: none Physical Exam - General Limitations: no limitations General appearance: alert, in no apparent distress, other (Patient does appear pale.) - Head Head exam: atraumatic, normocephalic - Eye Eye exam: Present: normal appearance, PERRL, EOMI. Absent: scleral icterus - ENT ENT exam: normal exam, normal oropharynx, mucous membranes moist - Neck Neck exam: Present: normal inspection, full ROM, trachea midline. Absent: lymphadenopathy - Chest Chest inspection: Present: normal inspection, symmetric chest wall rise. Absent : tenderness - Respiratory Respiratory exam: Present: normal lung sounds bilaterally. Absent: respiratory distress - Cardiovascular Cardiovascular exam: Present: regular rate, normal rhythm, normal heart sounds - Abdominal Exam Abdominal exam: Present: soft, Non-Tender. Absent: rigidity - Extremities Exam Extremities exam: Present: normal inspection, full ROM, normal capillary refill. Absent: tenderness, pedal edema - Back Exam Back exam: Present: normal inspection, full ROM. Absent: tenderness, CVA tenderness (R), CVA tenderness (L) - Neurological Exam Neurological exam: Present: alert, oriented X3 - Psychiatric Psychiatric exam: Present: normal affect, normal mood - Skin Skin exam: Present: warm, dry, intact, pallor Course Course Narrative: Male patient very pleasant resting comfortably in bed in no distress. He does appear pale on exam. He states he had 2 episodes of a dark purple stool overnight. He states that he thinks this was blood clots. He states there is a large amount of stool that came out of his rectum. He did have to clean the toilet after both episodes. He states he had one more episode this morning. States he did have cramping abdominal pain prior to the first episode but has no abdominal pain at this time. He does feel like his heart is beating a little faster than normal but denies racing. He also admits to a left sided chest ache. He states this is been intermittent for over 3 months. He states he has been worked up for this previously. Have a recent colonoscopy within the last month and several polyps were removed. He does have a history of CLL as well as "liver disease." He is unaware if he is on a blood thinner but does take aspirin every day. He has never had this much blood from his rectum before. He appears to be resting comfortably at this time. We will do basic lab workup as well as a chest pain workup on the patient. We will send for a occult blood stool. He denies any pain at this time. He expresses no needs. - Reevaluation(s) Reevaluation #1: Patient hemoglobin is low. We are still waiting on patient to produce a stool. I talked to Dr. Lemus we will admit patient for his GI bleed. He states he will see the patient tomorrow in and scope him on Friday. Patient is agreeable with this plan. And does not wish to have a rectal exam done. Time: 15:00 - Consultations Consultation #1: Spoke with Dr. Lemus on the phone. He is advising to do a CT with oral contrast. He is also expressing to admit patient to the hospitalist. To monitor him closely for possible transfusion. He states he will see the patient tomorrow and scope him on Friday. Time: 12:41 Consultation #2: Dr Rodriguez accepted Pt in stable condition. Time: 14:53 Vital Signs Temperature 97.4 F L 06/15/16 10:41 Pulse Rate 105 06/15/16 10:41 Respiratory Rate 18 06/15/16 10:41 Blood Pressure 132/71 06/15/16 10:41 O2 Sat by Pulse Oximetry 95 06/15/16 10:41 Temperature 97.4 F L 06/15/16 10:41 Pulse Rate 88 06/15/16 13:04 Respiratory Rate 18 06/15/16 13:04 Blood Pressure 116/68 06/15/16 13:04 O2 Sat by Pulse Oximetry 98 06/15/16 13:04 Oxygen Delivery Oxygen Delivery Room Air Medical Decision Making - MDM Narrative Medical decision making narrative: I examined this patient and my medical decision-making was reviewed with the ESTHETICIAN/OWNER/PA/Advanced Practice Nurse/Resident Physician. I agree with the documented findings, disposition and treatment plan as described except to the extent set forth below. Patient comes in today with possible GI bleed. He had a colonoscopy done a week ago and said they did not really find anything we reviewed that study and saw some polyps but does not appear with her remove no signs of bleeding. He said he had 2 dark colored watery bowel movements. That he thought might be blood. He denies abdominal pain. Her neck and her guaiac here he said that he could probably have a bowel movement we can check that. Checking labs and then we will reassess. He is in agreement with plan. 1200 hrs.: Patient's white blood cell count is elevated consistent with his leukemia. His hemoglobin has dropped from 13 about a month ago down to 8. We will type and screen him. He is already getting fluids. He is stable at this time he will need admission. 1230 hrs.: Patient's remaining labs are back he has chronic renal insufficiency and his BUN is also elevated probably due to the bleeding. And were not touch base with Dr. Lemus who patient has seen for his colonoscopy and then probably bring him in to the hospitalist with GI consultation. 1233 hrs. Patient's potassium is elevated. Had no EKG changes were not ago had not continue fluids on him giving calcium. Waiting on consult with GI. 1240 hrs.: GI would like his CT done with oral contrast, and then admission with them consult in. Patient's critical care time exclusively billable procedures is 40 minutes. - Medical Records Medical records reviewed: Yes I reviewed the patient's medical records. - Lab Data Result diagrams: 06/15/16 11:38 06/15/16 14:21 Lab Results 06/15/16 06/15/16 06/15/16 Range/Units 11:37 11:38 11:38 WBC 39.1 H* (4.3-11.1) K/mcL RBC 3.09 L (4.19-5.50) M/mcL Hgb 8.7 L (12.9-16.9) g/dL Hct 27.2 L (37.5-50.1) % MCV 88.0 (83.0-100.0) fL MCH 28.2 (28.0-33.3) pg MCHC 32.0 (31.6-35.5) g/dL RDW 14.4 (11.5-14.5) % Plt Count 148 (140-400) K/mcL MPV 12.0 (9.4-12.4) fL Seg Neutrophils % 22.0 % Lymphocytes % 76.0 % Monocytes % 2.0 % Neutrophils # 8.6 (1.6-8.9) K/mcL Lymphocytes # 29.7 H (0.6-4.6) K/mcL Monocytes # 0.8 (0.0-1.3) K/mcL Platelet Estimate Normal (Normal) Anisocytosis 1+ A (Not Present) PT 12.9 H (9.4-12.1) Seconds INR 1.2 APTT 23.9 L (26.0-36.0) Seconds Sodium (136-145) mEq/L Potassium (3.5-4.5) mEq/L Chloride (98-109) mEq/L Carbon Dioxide (19-29) mEq/L BUN (8-26) mg/dL Creatinine (0.72-1.25) mg/dL Est GFR ( Amer) (> 60) Est GFR (Non-Af Amer) (> 60) BUN/Creatinine Ratio (6-26) Glucose (70-99) mg/dL Calculated Osmolality (280-300) Calcium (8.6-10.8) mg/dL Total Bilirubin (0.2-1.2) mg/dL Direct Bilirubin (0.0-0.5) mg/dL Indirect Bilirubin (0.0-1.2) mg/dL AST (5-34) Units/L ALT (0-55) Units/L Alkaline Phosphatase (38-126) Units/L Troponin I (0-0.03) ng/mL Serum Total Protein (6.0-8.3) g/dL Albumin (3.5-5.0) g/dL Globulin (2.4-3.5) g/dL Albumin/Globulin Ratio (1.1-2.2) Blood Type A POSITIVE Antibody Screen NEGATIVE 06/15/16 06/15/16 06/15/16 Range/Units 11:38 11:38 11:38 WBC (4.3-11.1) K/mcL RBC (4.19-5.50) M/mcL Hgb (12.9-16.9) g/dL Hct (37.5-50.1) % MCV (83.0-100.0) fL MCH (28.0-33.3) pg MCHC (31.6-35.5) g/dL RDW (11.5-14.5) % Plt Count (140-400) K/mcL MPV (9.4-12.4) fL Seg Neutrophils % % Lymphocytes % % Monocytes % % Neutrophils # (1.6-8.9) K/mcL Lymphocytes # (0.6-4.6) K/mcL Monocytes # (0.0-1.3) K/mcL Platelet Estimate (Normal) Anisocytosis (Not Present) PT (9.4-12.1) Seconds INR APTT (26.0-36.0) Seconds Sodium 136 (136-145) mEq/L Potassium 5.8 H (3.5-4.5) mEq/L Chloride 103 (98-109) mEq/L Carbon Dioxide 26 (19-29) mEq/L BUN 51 H (8-26) mg/dL Creatinine 2.06 H (0.72-1.25) mg/dL Est GFR ( Amer) 38 L (> 60) Est GFR (Non-Af Amer) 32 L (> 60) BUN/Creatinine Ratio 25 (6-26) Glucose 317 H (70-99) mg/dL Calculated Osmolality 308 H (280-300) Calcium 8.8 (8.6-10.8) mg/dL Total Bilirubin 0.4 (0.2-1.2) mg/dL Direct Bilirubin 0.2 (0.0-0.5) mg/dL Indirect Bilirubin 0.2 (0.0-1.2) mg/dL AST 19 (5-34) Units/L ALT 20 (0-55) Units/L Alkaline Phosphatase 51 (38-126) Units/L Troponin I 0.02 (0-0.03) ng/mL Serum Total Protein 5.8 L (6.0-8.3) g/dL Albumin 3.6 (3.5-5.0) g/dL Globulin 2.2 L (2.4-3.5) g/dL Albumin/Globulin Ratio 1.6 (1.1-2.2) Blood Type Antibody Screen 06/15/16 Range/Units 14:21 WBC (4.3-11.1) K/mcL RBC (4.19-5.50) M/mcL Hgb (12.9-16.9) g/dL Hct (37.5-50.1) % MCV (83.0-100.0) fL MCH (28.0-33.3) pg MCHC (31.6-35.5) g/dL RDW (11.5-14.5) % Plt Count (140-400) K/mcL MPV (9.4-12.4) fL Seg Neutrophils % % Lymphocytes % % Monocytes % % Neutrophils # (1.6-8.9) K/mcL Lymphocytes # (0.6-4.6) K/mcL Monocytes # (0.0-1.3) K/mcL Platelet Estimate (Normal) Anisocytosis (Not Present) PT (9.4-12.1) Seconds INR APTT (26.0-36.0) Seconds Sodium (136-145) mEq/L Potassium 4.8 H D (3.5-4.5) mEq/L Chloride (98-109) mEq/L Carbon Dioxide (19-29) mEq/L BUN (8-26) mg/dL Creatinine (0.72-1.25) mg/dL Est GFR ( Amer) (> 60) Est GFR (Non-Af Amer) (> 60) BUN/Creatinine Ratio (6-26) Glucose (70-99) mg/dL Calculated Osmolality (280-300) Calcium (8.6-10.8) mg/dL Total Bilirubin (0.2-1.2) mg/dL Direct Bilirubin (0.0-0.5) mg/dL Indirect Bilirubin (0.0-1.2) mg/dL AST (5-34) Units/L ALT (0-55) Units/L Alkaline Phosphatase (38-126) Units/L Troponin I (0-0.03) ng/mL Serum Total Protein (6.0-8.3) g/dL Albumin (3.5-5.0) g/dL Globulin (2.4-3.5) g/dL Albumin/Globulin Ratio (1.1-2.2) Blood Type Antibody Screen - Radiology Data Chest X-Ray 06/15/16 11:10 IMPRESSION: Stable cardiomegaly. No acute pulmonary disease. D/ / Danny Garcia MD / Danny Garcia MD Interpreting Provider: Danny Garcia MD Abdomen/Pelvis CT 06/15/16 12:38 IMPRESSION: 1. Stable abdominal lymphadenopathy and splenomegaly which may relate to lymphoproliferative disorder. These findings are stable compared to a prior CT abdomen/ pelvis 06/11/2013. 2. Subtle nodular contour of the liver, cirrhosis cannot be excluded. No ascites. 3. No acute abdominal/pelvic process. No finding to account for the history of rectal bleeding. D/ / 06/15/2016 14:40:07 Kee Byers MD / mindysarah Interpreting Provider: Kee Byers MD - EKG Data EKG #1 EKG attestation: Yes I reviewed and interpreted this EKG. EKG results narrative: Normal sinus rhythm at a rate of 78. DE interval is 166. Urine is duration is 92. QT is 376. QTC is 410. No ST elevation or depression noted. No significant changes from previous EKG dated 04/24/2016.
[2016-06-15 11:47] LABS: Hematocrit 27.2 % (37.5-50.1); Hemoglobin 8.7 g/dL (12.9-16.9); Mean Corpuscular Hemoglobin 28.2 pg (28.0-33.3); Platelet Count 148 K/mcL (140-400); Red Blood Count 3.09 M/mcL (4.19-5.50); Red Cell Distribution Width 14.4 % (11.5-14.5)
[2016-06-15 11:54] LABS: INR 1.2; Prothrombin Time 12.9 Seconds (9.4-12.1)
[2016-06-15 11:56] LABS: Activated Partial Thrombo Time 23.9 Seconds (26.0-36.0)
[2016-06-15 12:03] LABS: Calcium 8.8 mg/dL (8.6-10.8); Potassium 5.8 mEq/L (3.5-4.5)
[2016-06-15 12:05] LABS: Albumin 3.6 g/dL (3.5-5.0); Albumin/Globulin Ratio 1.6 (1.1-2.2); Bilirubin,Direct 0.2 mg/dL (0.0-0.5); Bilirubin,Indirect 0.2 mg/dL (0.0-1.2); Bilirubin,Total 0.4 mg/dL (0.2-1.2); Globulin 2.2 g/dL (2.4-3.5); Total Protein 5.8 g/dL (6.0-8.3)
[2016-06-15 12:18] LABS: Lymphocytes # 29.7 K/mcL (0.6-4.6); Monocytes # 0.8 K/mcL (0.0-1.3); Neutrophils # 8.6 K/mcL (1.6-8.9)
[2016-06-15 12:19] LABS: Anisocytosis 1+ (Not Present); Platelet Estimate Normal (Normal)
[2016-06-15] MEDS ORDERED: Calcium Gluconate 1,000 MG in D5% in Water 100 ML IVPB ONE (12:33)
[2016-06-15] MEDS ORDERED: Naloxone 0.4 MG/ML INJ IVP PRN (18:18)
[2016-06-15] MEDS ORDERED: Ondansetron 4 MG/2 ML VIAL IVP PRN (18:20)
[2016-06-15] MEDS ORDERED: SODIUM CHLORIDE/NAHCO3/KCL/PEG 4,000 ML SOLN.RECON PO ONE (18:23)
--- NOTE | 2016-06-15 18:39 | Event Note ---
Date of Encounter: 06/15/16 Time of Encounter: 18:36 Dariela quintana examined with nurse practitioner. Briefly 75-year-old male with CLL/SLL who had colonoscopy with removal of multiple polyps 10 days ago presents will post polypectomy bleeding. He is an aspirin. He thinks he is on blood thinners however it is not on his medication list. Patient bled quite a significant amount 3 times each time about 2 cups. Hemoglobin dropped about 4 g. Serial H&H. Transfusions as needed. Gastroenterology has been contacted colonoscopy will be performed in a.m. Tranfuse once his hemoglobin is less than 8 because of his symptoms. full code
[2016-06-15] MEDS ORDERED: *HR* Dextrose 50 % in Water (Syg) 50 ML SYRINGE IVP PRN (18:58)
[2016-06-15] MEDS ORDERED: Dextrose Gel 15 GM PO PRN ×2 (18:58)
[2016-06-15] MEDS ORDERED: D5% in Water 1,000 ML IVC PRN (18:58)
--- NOTE | 2016-06-15 18:58 | Internal Med History&Physical ---
Date of Encounter: 06/15/16 Time of Encounter: 17:30 Assessment and Plan (1) Lower gastrointestinal hemorrhage Current visit: Yes Status: Acute 1 patient underwent colonoscopy on 06/06/16 he began to experience episodes of hematochezia starting last night. Hemoglobin down from 13-8.7. Patient type and screen [address] Hernandez he will see patient in AM 3 clear liquids until midnight nothing by mouth after midnight 4 Will initiate GoLYTELY for bowel prep. (2) Hyperkalemia Current visit: Yes Status: Acute 1 patient's creatinine on presentation was 5.8 given calcium gluconate and bicarbonate as IV fluids 2 continue to monitor potassium 3 continuous cardiac monitoring (3) Vylji-gc-orzsscd renal failure Current visit: Yes Status: Acute 1 patient has creatinine of 2.06 baseline 1.5-1.6. This likely related to blood loss we will monitor creatinine type and screen for PRBC-transfuse once hemoglobin less than 7 2. Gentle IV fluids 3 we will hold diuretics and antihypertensives for now 4 maintain map greater than 60 5 avoid nephrotoxins (4) HTN (hypertension) Current visit: Yes Status: Chronic 1 presently controlled we will hold anti-hypertensives for now due to recent blood loss resume once back to baseline Qualifiers: Hypertension type: essential hypertension Qualified Code(s): I10 - Essential (primary) hypertension (5) Chronic lymphocytic leukemia (CLL), B-cell Current visit: No Status: Chronic 1 patient is being followed by oncology will continue his outpatient/consult as needed WBCs presently 39 Qualifiers: Leukemia Active/Remission status: without remission Qualified Code(s): C91.10 - Chronic lymphocytic leukemia of B-cell type not having achieved remission (6) NSVT (nonsustained ventricular tachycardia) Current visit: No Status: Chronic 1 has history of paroxysmal SVT has a sinus rhythm will continue cardiac monitoring 2 patient is being followed by cardiology as outpatient will continue to consult as needed 3 continue with beta gomez (7) Diabetes mellitus Current visit: Yes Status: Chronic 1 patient is presently nothing by mouth we will hold basal insulin for now 2 Accu-Cheks every 6 hours with sliding scale insulin will resume basal once taking orals Qualifiers: Diabetes mellitus type: type 2 Diabetes mellitus complication status: with kidney complications Diabetes mellitus complication detail: with chronic kidney disease Diabetes mellitus exterminator helper insulin use: with halfway use Chronic kidney disease stage: stage 3 (moderate) Qualified Code(s): E11.22 - Type 2 diabetes mellitus with diabetic chronic kidney disease; N18.3 - Chronic kidney disease, stage 3 (moderate); Z79.4 - [facility] (current) use of insulin (8) DVT prophylaxis Current visit: No Status: Acute 1 SCDs Internal Medicine - H&P: HPI Chief complaint: rectal bleeding Admitted From: Emergency Dept Plans for Post Hospital Care: Home History of present illness: Mr. Vidal is a 75 year old male past medical history of diabetes hypertension CLL/SLL dementia. According to the patient he underwent a colonoscopy 2016 had 2 polyps removed at been doing well until last night when he experienced 2 episodes of large hematochezia. Prior to the first episode patient did experience abdominal cramping however no symptoms of nausea vomiting or diarrhea. He denied any shortness of breath palpitations or lightheadedness. He is on aspirin daily no other anticoagulation. He did say he has experienced INTERMITTENT left-sided chest pain for approximately 3 months. There are no aggravating or relieving factors it resolves on its own. He did experience another episode this a.m. afterwards he presented to the ER for evaluation. According to ER records lab work did reveal hemoglobin 8.7 which is down from last month 13.4 white count is 39 potassium was 5.8 creatinine was 2.06. Troponin was 0.02 occult stool was positive CT of abdomen no acute changes. He was given calcium gluconate as well as IV fluids his vital signs were stable. He was admitted for further workup and evaluation. Prior to transfer to floor patient did have another episode of hematochezia. Presently the patient denies any chest pain shortness of breath vital signs are stable abdomen soft and nontender no active bleeding noted at this time. I did review his case with Dr. Rodriguez who did agree with plan Past Med Surg Social Fam HX - Past Medical History Medical history: cancer, coronary artery disease, dementia, diabetes, hypertension, renal disease, SVT, other Psychiatric history: depression - Past Surgical History Surgical History: appendectomy, orthopedic, other - Social History Smoking Status: Former smoker Smokeless Tobacco Status: No Alcohol use: none Drug use: none - Family History Mother Living Status: Cause of : Liver cancer Hx Family Cardiac Disorders: Yes (HTN) Hx Family Cancer: Yes (liver cancer) Internal Medicine - H&P: Meds Amlodipine [Norvasc] 10 mg PO DAILY 02/24/16 [History] Aspirin [Lo-Dose Aspirin EC] 81 mg PO DAILY 02/24/16 [History] Donepezil [Aricept] 10 mg PO DAILY 02/24/16 [History] Gabapentin [Neurontin] 300 mg PO BID 02/24/16 [History] HYDROcodone/Acet 5/325 mg [[place] 5-325 mg] 1 tab PO TID PRN 02/24/16 [History] Insulin Glargine,Hum.rec.anlog [Lantus Solostar] 22 unit SQ HS 02/24/16 [History ] Metoprolol XL (24 HR) Succ [Toprol Xl] 25 mg PO DAILY 02/24/16 [History] [place]-3 Fatty Acids [Fish Oil] 300 mg PO DAILY 02/24/16 [History] Pravastatin Sodium [Pravachol] 80 mg PO DAILY 02/24/16 [History] Sertraline [Zoloft] 100 mg PO DAILY 02/24/16 [History] Tizanidine HCl [Zanaflex] 2 mg PO HS #30 capsule 02/25/16 [Rx] Ergocalciferol (VITAMIN D2) [Vitamin D2] 2,000 unit PO DAILY 05/22/16 [History] Multivitamin [Multi-Day Vitamins] 1 each PO DAILY 05/22/16 [History] Buspirone HCl [Buspar] 7.5 mg PO BID 06/04/16 [History] Ciclopirox [Penlac] 1 drop TP DAILY 06/04/16 [History] Cinnamon Bark [Cinnamon] 500 mg PO DAILY 06/04/16 [History] Cyclosporine [Restasis] 1 each OP DAILY 06/04/16 [History] Ferrous Sulfate [Iron] 325 mg PO DAILY 06/04/16 [History] Fluticasone Propionate Nasal [Flonase] 1 spray NS BID 06/04/16 [History] HydrALAZINE 25 mg PO BID 06/04/16 [History] Omeprazole [PriLOSEC] 20 mg PO DAILY 06/04/16 [History] Thiamine Mononitrate [Vitamin B-1] 100 mg PO DAILY 06/04/16 [History] Trazodone HCl 100 mg PO HS 06/04/16 [History] Albuterol Sulfate [Proair Hfa] 2 puff IH Q4H PRN 06/15/16 [History] Furosemide [Lasix] 20 mg PO DAILY 06/15/16 [History] Lidocaine Patch [Lidoderm 5% patch] 1 patch TP DAILY 06/15/16 [History] Allergies No Known Allergies Allergy (Verified 06/04/16 10:05) All Systems PM: A 10-system review of systems was performed and is negative for pertinent findings except as documented above in the HPI. - Constitutional Constitutional: no chills, no fever(s), no night sweats - EENT Eyes: no change in vision, no discharge, no pain, no photophobia Nose, mouth and throat: no dysphagia, no nasal discharge, no neck pain, no sore throat - Cardiovascular Cardiovascular ROS IM: chest pain - Respiratory Respiratory: no cough, no dyspnea, no wheezing, no excessive phlegm production - Gastrointestinal Gastrointestinal: cramping, no abdominal pain, no diarrhea, no hematemesis, no hematochezia, no melena, no nausea, no vomiting - Musculoskeletal Musculoskeletal ROS IM: no numbness, no tingling - Neurological Neurological ROS: no confusion, no convulsions, no focal weakness, no numbness, no tingling, no tremor(s) - Constitutional Vitals: Temp Pulse Resp BP Pulse Ox 98.2 F 74 16 118/62 96 06/15/16 16:04 06/15/16 16:04 06/15/16 16:04 06/15/16 16:04 06/15/16 16:04 General appearance: Present: A&O X 3, answers questions appropriately - Head Head exam: Present: atraumatic, normocephalic - Eye Eye exam: Present: PERRL, conjuntiva pink, sclera anicteric Pupils: Present: PERRL - Neck Neck exam general surgery: Present: supple, trachea midline. Absent: lymphadenopathy - Respiratory Respiratory exam: Present: CTAB. Absent: accessory muscle use, rales, rhonchi, wheezes - Cardiovascular Cardiovascular exam: Present: RRR, +S1, +S2. Absent: diastolic murmur, gallop, rubs, systolic murmur - GI/Abdominal GI/Abdominal exam: Present: normal bowel sounds, soft, no peritoneal signs. Absent: distended, tenderness - Extremities Exam Extremities exam: Present: warm, radial pulses palpable and symetrical. Absent : calf tenderness, cyanotic, pedal edema - Neurological Exam Neurological exam: Present: CN II-XII intact, oriented X3, no focal deficits. Absent: pronater drift, facial droop, speech deficit - Skin Skin exam: Present: dry, intact Internal Med - H&P Results - Labs CBC & Chem 7: 06/15/16 11:38 06/15/16 14:21 - EKG Data EKG shows normal: sinus rhythm - EKG Data Prior EKG available for review: yes When compared to previous EKG: there is no significant change - Diagnostic Studies Other Images Additional comments: Chest X-Ray 06/15/16 11:10 IMPRESSION: Stable cardiomegaly. No acute pulmonary disease. D/ / Danny Garcia MD / Danny Garcia MD Interpreting Provider: Danny Garcia MD Abdomen/Pelvis CT 06/15/16 12:38 IMPRESSION: 1. Stable abdominal lymphadenopathy and splenomegaly which may relate to lymphoproliferative disorder. These findings are stable compared to a prior CT abdomen/ pelvis 06/11/2013. 2. Subtle nodular contour of the liver, cirrhosis cannot be excluded. No ascites. 3. No acute abdominal/pelvic process. No finding to account for the history of rectal bleeding. D/ / 06/15/2016 14:40:07 Kee Byers MD / sylvia Interpreting Provider: Kee Byers MD
[2016-06-15 19:49] LABS: Hematocrit 24.6 % (37.5-50.1); Hemoglobin 7.9 g/dL (12.9-16.9)
[2016-06-15] MEDS: Gabapentin 300 MG CAPSULE PO SCH (20:27)
[2016-06-15] MEDS: 0.9 % Sodium Chloride 1,000 ML IVC SCH (20:29)
[2016-06-15] MEDS ORDERED: Acetaminophen 325 MG TABLET PO PRN (21:34)
[2016-06-15] MEDS ORDERED: *HR* Morphine 2 MG/ML SYRINGE IVP PRN (21:34)
[2016-06-15] MEDS: *HR* HYDROcodone/Acet 5/325 mg TABLET PO PRN (22:19)
[2016-06-15] MEDS ORDERED: 0.9 % Sodium Chloride 500 ML ONE (23:31)
[2016-06-16] MEDS: Insulin LISPRO 300 UNITS/3 ML VIAL SQ SCH ×4 (00:37→17:10)
[2016-06-16] MEDS: *HR* HYDROcodone/Acet 5/325 mg TABLET PO PRN ×2 (06:44→20:24)
--- NOTE | 2016-06-16 07:41 | General Surgery Consult Note ---
Date of Encounter: 06/16/16 Time of Encounter: 07:40 Assessment and Plan (1) Lower gastrointestinal hemorrhage Current Visit: Yes Status: Acute The patient has developed lower GI bleed after colonoscopy with polypectomy. He now presents for colonoscopy with identification and treatment of bleeding site. We will proceed with bowel prep and colonoscopy later today. History of Present Illness Consult date: 06/16/16 Reason for consult: other (Lower GI bleeding after polypectomy) History of present illness: The patient had significant lower GI bleeding after polypectomy. He underwent polypectomy of 6 polyps on 06/04/2016. For the polyps were 6 mm in size and in the right colon. 2 polyps were 7 mm in size and in the descending colon. The patient has had high-volume rectal bleeding for 24 hours. He has chronic lymphocytic leukemia and leukocytosis based on this diagnosis. He has hemoglobin and hematocrit are decreased and he is receiving blood transfusion. We will plan on colonoscopy later today with identification and control of bleeding site. Past Med Surg Social Fam HX - Past Medical History Medical history: cancer, coronary artery disease, dementia, diabetes, hypertension, renal disease, SVT, other Psychiatric history: depression - Past Surgical History Surgical History: appendectomy, orthopedic, other - Social History Smoking Status: Former smoker Smokeless Tobacco Status: No Alcohol use: none Drug use: none - Family History Mother Living Status: Cause of : Liver cancer Hx Family Cardiac Disorders: Yes (HTN) Hx Family Cancer: Yes (liver cancer) Medications and Allergies Amlodipine [Norvasc] 10 mg PO DAILY 02/24/16 [History] Aspirin [Lo-Dose Aspirin EC] 81 mg PO DAILY 02/24/16 [History] Donepezil [Aricept] 10 mg PO DAILY 02/24/16 [History] Gabapentin [Neurontin] 300 mg PO BID 02/24/16 [History] HYDROcodone/Acet 5/325 mg [[place] 5-325 mg] 1 tab PO TID PRN 02/24/16 [History] Insulin Glargine,Hum.rec.anlog [Lantus Solostar] 22 unit SQ HS 02/24/16 [History ] Metoprolol XL (24 HR) Succ [Toprol Xl] 25 mg PO DAILY 02/24/16 [History] [place]-3 Fatty Acids [Fish Oil] 300 mg PO DAILY 02/24/16 [History] Pravastatin Sodium [Pravachol] 80 mg PO DAILY 02/24/16 [History] Sertraline [Zoloft] 100 mg PO DAILY 02/24/16 [History] Tizanidine HCl [Zanaflex] 2 mg PO HS #30 capsule 02/25/16 [Rx] Ergocalciferol (VITAMIN D2) [Vitamin D2] 2,000 unit PO DAILY 05/22/16 [History] Multivitamin [Multi-Day Vitamins] 1 each PO DAILY 05/22/16 [History] Buspirone HCl [Buspar] 7.5 mg PO BID 06/04/16 [History] Ciclopirox [Penlac] 1 drop TP DAILY 06/04/16 [History] Cinnamon Bark [Cinnamon] 500 mg PO DAILY 06/04/16 [History] Cyclosporine [Restasis] 1 each OP DAILY 06/04/16 [History] Ferrous Sulfate [Iron] 325 mg PO DAILY 06/04/16 [History] Fluticasone Propionate Nasal [Flonase] 1 spray NS BID 06/04/16 [History] HydrALAZINE 25 mg PO BID 06/04/16 [History] Omeprazole [PriLOSEC] 20 mg PO DAILY 06/04/16 [History] Thiamine Mononitrate [Vitamin B-1] 100 mg PO DAILY 06/04/16 [History] Trazodone HCl 100 mg PO HS 06/04/16 [History] Albuterol Sulfate [Proair Hfa] 2 puff IH Q4H PRN 06/15/16 [History] Furosemide [Lasix] 20 mg PO DAILY 06/15/16 [History] Lidocaine Patch [Lidoderm 5% patch] 1 patch TP DAILY 06/15/16 [History] Allergies No Known Allergies Allergy (Verified 06/04/16 10:05) Review of Systems All systems PM: A 10-system review of systems was performed and is negative for pertinent findings except as documented above in the HPI. General Surgery Exam Initial Vital Signs Temp Pulse Resp BP Pulse Ox 97.4 F L 105 18 132/71 95 06/15/16 10:41 06/15/16 10:41 06/15/16 10:41 06/15/16 10:41 06/15/16 10:41 - General physical appearance well developed, well nourished, no distress - Neck no masses, no bruits, trachea midline, no lymphadectomy, no venous distension - Respiratory normal expansion, normal respiratory effort, clear to percussion, clear to auscultation - Cardiovascular Cardiovascular exam: Present: RRR, 15, 16 - Abdomen Abdomen general surgery: Present: bowel sounds present, soft, non tender - Neurologic Present: CN 2-12 grossly intact, normal coordination, normal sensation - Psychiatric Psychiatric general surgery: Present: appropriate, oriented to person, oriented to place, oriented to time, speech is normal, memory intact Exam Initial Vital Signs Temp Pulse Resp BP Pulse Ox 97.4 F L 105 18 132/71 95 06/15/16 10:41 06/15/16 10:41 06/15/16 10:41 06/15/16 10:41 06/15/16 10:41 Results - Labs 06/15/16 19:14 06/15/16 19:14 Abnormal lab results WBC 39.1 K/mcL (4.3-11.1) H* 06/15/16 11:38 RBC 3.09 M/mcL (4.19-5.50) L 06/15/16 11:38 Hgb 7.9 g/dL (12.9-16.9) L 06/15/16 19:14 Hct 24.6 % (37.5-50.1) L 06/15/16 19:14 Lymphocytes # 29.7 K/mcL (0.6-4.6) H 06/15/16 11:38 Anisocytosis 1+ (Not Present) A 06/15/16 11:38 PT 12.9 Seconds (9.4-12.1) H 06/15/16 11:38 APTT 23.9 Seconds (26.0-36.0) L 06/15/16 11:38 BUN 51 mg/dL (8-26) H 06/15/16 11:38 Creatinine 2.06 mg/dL (0.72-1.25) H 06/15/16 11:38 Est GFR ( Amer) 38 (> 60) L 06/15/16 11:38 Est GFR (Non-Af Amer) 32 (> 60) L 06/15/16 11:38 Glucose 317 mg/dL (70-99) H 06/15/16 11:38 POC Glucose 150 (58-89) H 06/16/16 00:35 Calculated Osmolality 308 (280-300) H 06/15/16 11:38 Serum Total Protein 5.8 g/dL (6.0-8.3) L 06/15/16 11:38 Globulin 2.2 g/dL (2.4-3.5) L 06/15/16 11:38 Stool Occult Blood Positive (Negative) A 06/15/16 15:33 Diabetes panel 06/15/16 Range/Units 19:14 Potassium 4.4 (3.5-4.5) mEq/L Pituitary panel 06/15/16 Range/Units 19:14 Potassium 4.4 (3.5-4.5) mEq/L Adrenal panel 06/15/16 Range/Units 19:14 Potassium 4.4 (3.5-4.5) mEq/L All other labs normal. Consult Discharge Plan - Plan Referrals: Nhi Lagos MD [Primary Care Provider] -
[2016-06-16 07:42] LABS: Hematocrit 31.6 % (37.5-50.1)
[2016-06-16 07:45] LABS: Calcium 8.8 mg/dL (8.6-10.8); Potassium 4.5 mEq/L (3.5-4.5)
[2016-06-16 08:11] LABS: Hemoglobin 9.9 g/dL (12.9-16.9)
[2016-06-16] MEDS: Metoprolol XL (24 HR) Succ 25 MG TAB.ER.24H PO SCH (08:51)
[2016-06-16] MEDS: Gabapentin 300 MG CAPSULE PO SCH ×2 (08:52→20:22)
[2016-06-16] MEDS: *HR* Morphine 2 MG/ML SYRINGE IVP PRN (08:53)
[2016-06-16] MEDS ORDERED: Metoprolol XL (24 HR) Succ 25 MG TAB.ER.24H PO SCH (09:00)
[2016-06-16] MEDS ORDERED: *HR* FentaNYL (PF) 100 MCG/2 ML VIAL IVP PRN (10:13)
[2016-06-16] MEDS ORDERED: Simethicone 40 MG/0.6 ML MLS IR ONE (10:13)
[2016-06-16] MEDS ORDERED: *HR* FentaNYL (PF) 100 MCG/2 ML VIAL ONE (10:16)
[2016-06-16] MEDS ORDERED: *HR* Midazolam HCl 5 MG/5 ML VIAL IVP ONE ×2 (10:16→10:34)
--- NOTE | 2016-06-16 10:17 | Pre-Sedation Evaluation ---
Pre-sedation evaluation - Pre-sedation checklist Date of procedure: 06/16/16 Procedure: Colonoscopy Recent Vitals: Last Vital Signs Temp 98.3 F 06/16/16 08:44 Pulse 76 06/16/16 08:44 Resp 14 06/16/16 08:44 BP 147/65 06/16/16 08:44 Pulse Ox 94 06/16/16 08:44 H&P (including ROS) documented in medical record: Yes Previous reaction to sedatives/anesthetics: No Dietary Status: NPO after Midnight Dentition: No loose teeth or bridges Possible difficult airway: No ASA Classification *see protocol: CLASS II-Mild systemic disease Plan of Care: Pt appropriate candidate for procedure/moderate/conscious sedation , Risks/benefits of procedure/sedation discussed w/ patient/family
[2016-06-16] MEDS: *HR* Midazolam HCl 5 MG/5 ML VIAL IVP PRN ×3 (10:28→10:35)
[2016-06-16] MEDS ORDERED: 0.9 % Sodium Chloride 1,000 ML IVC SCH (10:30)
[2016-06-16 13:08] LABS: Hematocrit 29.3 % (37.5-50.1); Hemoglobin 9.4 g/dL (12.9-16.9)
--- NOTE | 2016-06-16 13:43 | Internal Med Progress Note ---
<SilvinoVilmajarvis Guerrier - Last Filed: 06/16/16 15:55> Date of Encounter: 06/16/16 Time of Encounter: 09:40 - Assessment and plan (1) Lower gastrointestinal hemorrhage Current Visit: Yes Status: Acute Assessment and plan: Patient presented with BRBPR and acute blood loss with Hb of 8.7 Patient has been transfused 1 unit RBCs Transfuse 1 more unit RBCs today Continue IVF Monitor Hb Dr. Hernandez will perform colonoscopy today We appreciate recommendations from surgery (2) Anemia due to blood loss, acute Current Visit: Yes Status: Acute Assessment and plan: Plan as above (3) Chronic lymphocytic leukemia (CLL), B-cell Current Visit: Yes Status: Chronic Assessment and plan: WBC 39.1 with Lymphocytosis secondary to CLL Patient follows with oncology as outpatient Qualifiers: Leukemia Active/Remission status: without remission Qualified Code(s): C91.10 - Chronic lymphocytic leukemia of B-cell type not having achieved remission (4) Llhbu-vc-jypoimk renal failure Current Visit: Yes Status: Acute Assessment and plan: Improving. pre-renal secondary to blood loss Cr 2.06 upon presentation with baseline 1.40-1.60 Following IVF resuscitation yesterday, Cr 1.47 today Will avoid nephrotoxins and diuretics (5) Hyperkalemia Current Visit: Yes Status: Resolved Assessment and plan: Resolved Continue to monitor (6) Fatigue Current Visit: Yes Status: Acute Assessment and plan: I suspect that patient's fatigue is secondary to acute blood loss anemia However, patient does have underlyisng CLL Qualifiers: Fatigue type: chronic, unspecified Qualified Code(s): R53.82 - Chronic fatigue, unspecified (7) Diabetes mellitus Current Visit: Yes Status: Chronic Assessment and plan: Patient has diet for clear liquids Continue SS low-dose correction TIDAC Qualifiers: Diabetes mellitus type: type 2 Diabetes mellitus complication status: with kidney complications Diabetes mellitus complication detail: with chronic kidney disease 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: with truck terminal manager use Chronic kidney disease stage: stage 3 (moderate) Qualified Code(s): E11.22 - Type 2 diabetes mellitus with diabetic chronic kidney disease; N18.3 - Chronic kidney disease, stage 3 (moderate); Z79.4 - joint terminal attack controller (current) use of insulin (8) HTN (hypertension) Current Visit: Yes Status: Chronic Assessment and plan: Controlled Continue BB Holding Hydralazine due to SBP 120s Qualifiers: Hypertension type: essential hypertension Qualified Code(s): I10 - Essential (primary) hypertension (9) DVT prophylaxis Current Visit: Yes Status: Acute Assessment and plan: SCDs Patient is not a candidate for anticoagulation due to GI bleed - Time Spent With Patient 25 - 35 minutes (35 minutes including time with patinet and coordinating care) - Subjective Interval history: Patient presented to [facility] on 06/15/16 complaining of bright red blood per rectum. He states that on 06/14/16, he had an episode that he thought was diarrhea, but noticed a large amount of bright red blood in the toilet bowel. He had 2 more episodes of rectal bleeding. Upon presentation to [facility], patient had Hb of 8.7, down from Hb of 13.4 on 05/09/16. Patient is s/p multiple polypectomy during colonoscopy on 06/04/16. Patient states that he is feeling fatigue this morning. He is complaining of being hungry. He recently had a brown, liquid bowel movement without blood. Patient has had 1u RBCs transfused at this time. - Constitutional Vitals: Temp Pulse Resp BP Pulse Ox 98.0 F 68 14 162/85 95 06/16/16 11:59 06/16/16 11:59 06/16/16 11:59 06/16/16 11:59 06/16/16 11:59 General appearance: Present: A&O X 3, answers questions appropriately - Head Head exam: Present: atraumatic, normocephalic - Eye Eye exam: Present: EOMI, PERRL, sclera anicteric - Neck Neck exam general surgery: Present: full ROM, normal inspection, supple, trachea midline. Absent: lymphadenopathy Additional comments: No carotid bruit - Respiratory Respiratory exam: Present: CTAB. Absent: accessory muscle use, rales, rhonchi, wheezes - Cardiovascular Cardiovascular exam: Present: RRR, +S1, +S2. Absent: diastolic murmur, gallop, rubs, systolic murmur - GI/Abdominal GI/Abdominal exam: Present: normal bowel sounds, soft, no peritoneal signs. Absent: distended, tenderness - Extremities Exam Extremities exam: Present: warm, radial pulses palpable and symetrical. Absent : calf tenderness, cyanotic, pedal edema - Neurological Exam Neurological exam: Present: CN II-XII intact, oriented X3, no focal deficits. Absent: facial droop, speech deficit - Skin Skin exam: Present: dry, intact Internal Medicine: Result - Labs CBC & Chem 7: 06/16/16 13:03 06/16/16 07:20 Labs: Short CBC 06/15/16 06/16/16 06/16/16 Range/Units 19:14 07:20 13:03 Hgb 7.9 L 9.9 L D 9.4 L (12.9-16.9) g/dL Hct 24.6 L 31.6 L 29.3 L (37.5-50.1) % BMP 06/15/16 06/16/16 19:14 07:20 Sodium 138 Potassium 4.4 4.5 Chloride 105 Carbon Dioxide 23 BUN 30 H D Creatinine 1.47 H Glucose 157 H Calcium 8.8 Cardiac Enzymes 06/15/16 06/16/16 Range/Units 19:14 01:02 Troponin I 0.02 0.02 (0-0.03) ng/mL - ABG Interpretation ABG results: PT/INR, D-dimer PT 12.9 Seconds (9.4-12.1) H 06/15/16 11:38 - Impressions Chest X-Ray 06/15/16 11:10 IMPRESSION: Stable cardiomegaly. No acute pulmonary disease. D/ / Danny Garcia MD / Danny Garcia MD Interpreting Provider: Danny Garcia MD Abdomen/Pelvis CT 06/15/16 12:38 IMPRESSION: 1. Stable abdominal lymphadenopathy and splenomegaly which may relate to lymphoproliferative disorder. These findings are stable compared to a prior CT abdomen/ pelvis 06/11/2013. 2. Subtle nodular contour of the liver, cirrhosis cannot be excluded. No ascites. 3. No acute abdominal/pelvic process. No finding to account for the history of rectal bleeding. D/ / 06/15/2016 14:40:07 Kee Byers MD / [email or web address] Interpreting Provider: Kee Byers MD Consult Discharge Plan - Plan Referrals: Nhi Lagos MD [Primary Care Provider] - <Cadence Mullen - Last Filed: 06/16/16 17:36> Date of Encounter: 06/16/16 - Constitutional Vitals: Temp Pulse Resp BP Pulse Ox 98.2 F 73 16 137/83 97 06/16/16 14:59 06/16/16 14:59 06/16/16 14:59 06/16/16 14:59 06/16/16 14:59 Internal Medicine: Result - Labs CBC & Chem 7: 06/16/16 13:03 06/16/16 07:20 Labs: Short CBC 06/15/16 06/16/16 06/16/16 Range/Units 19:14 07:20 13:03 Hgb 7.9 L 9.9 L D 9.4 L (12.9-16.9) g/dL Hct 24.6 L 31.6 L 29.3 L (37.5-50.1) % BMP 06/15/16 06/16/16 19:14 07:20 Sodium 138 Potassium 4.4 4.5 Chloride 105 Carbon Dioxide 23 BUN 30 H D Creatinine 1.47 H Glucose 157 H Calcium 8.8 Cardiac Enzymes 06/15/16 06/16/16 Range/Units 19:14 01:02 Troponin I 0.02 0.02 (0-0.03) ng/mL - ABG Interpretation ABG results: PT/INR, D-dimer PT 12.9 Seconds (9.4-12.1) H 06/15/16 11:38 - Attending Attestation I examined this patient and reviewed laboratory, imaging and all diagnostic data. My medical decision-making was reviewed with Dr Dubois - Resident Physician. I agree with the documented findings, disposition and treatment plan as described above
[2016-06-16] MEDS: 0.9 % Sodium Chloride 1,000 ML IVC SCH (17:11)
--- NOTE | 2016-06-16 20:18 | Electrocardiograph Report ---
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
[2016-06-16] MEDS ORDERED: Insulin LISPRO 300 UNITS/3 ML VIAL SQ SCH (21:00)
[2016-06-17] MEDS: 0.9 % Sodium Chloride 1,000 ML IVC SCH (03:36)
[2016-06-17] MEDS: *HR* Morphine 2 MG/ML SYRINGE IVP PRN ×2 (03:45→08:41)
[2016-06-17 05:25] LABS: BUN/Creatinine Ratio 14 (6-26); Calcium 8.7 mg/dL (8.6-10.8); Carbon Dioxide 23 mEq/L (19-29); Chloride 105 mEq/L (98-109); Glucose 130 mg/dL (70-99); Osmolality,Calculated 286 (280-300); Potassium 4.2 mEq/L (3.5-4.5); Sodium 136 mEq/L (136-145); eGFR For African Americans > 60 (> 60); eGFR For Non-African Americans 53 (> 60)
[2016-06-17 05:27] LABS: Blood Urea Nitrogen 18 mg/dL (8-26)
[2016-06-17 05:34] LABS: Hematocrit 30.8 % (37.5-50.1); Hemoglobin 9.6 g/dL (12.9-16.9); Mean Corpuscular HGB Conc 31.2 g/dL (31.6-35.5); Mean Corpuscular Hemoglobin 27.6 pg (28.0-33.3); Mean Corpuscular Volume 88.5 fL (83.0-100.0); Mean Platelet Volume 12.2 fL (9.4-12.4); Platelet Count 130 K/mcL (140-400); Red Blood Count 3.48 M/mcL (4.19-5.50); Red Cell Distribution Width 14.6 % (11.5-14.5)
[2016-06-17 07:21] VITALS: BP 138/63
[2016-06-17 07:23] LABS: Eosinophils # 1.6 K/mcL (0.0-0.6); Lymphocytes # 24.6 K/mcL (0.6-4.6); Neutrophils # 13.5 K/mcL (1.6-8.9); Platelet Estimate Slight Decrease (Normal)
[2016-06-17] MEDS: Insulin LISPRO 300 UNITS/3 ML VIAL SQ SCH (08:31)
[2016-06-17] MEDS: Gabapentin 300 MG CAPSULE PO SCH (08:35)
[2016-06-17] MEDS: Metoprolol XL (24 HR) Succ 25 MG TAB.ER.24H PO SCH (08:35)
--- NOTE | 2016-06-17 10:41 | Discharge Summary ---
<Vilma Dubois Fareed - Last Filed: 06/17/16 10:56> Date of Encounter: 06/17/16 Time of Encounter: 08:00 - Discharge Diagnosis (1) Lower gastrointestinal hemorrhage Priority: Primary Status: Acute (2) Anemia due to blood loss, acute Priority: Primary Status: Acute (3) Chronic lymphocytic leukemia (CLL), B-cell Priority: Secondary Status: Chronic Qualifiers: Leukemia Active/Remission status: without remission Qualified Code(s): C91.10 - Chronic lymphocytic leukemia of B-cell type not having achieved remission (4) [id number]-[id number] renal failure Priority: Secondary Status: Acute (5) Hyperkalemia Priority: Secondary Status: Resolved (6) Fatigue Priority: Secondary Status: Acute Qualifiers: Fatigue type: chronic, unspecified Qualified Code(s): R53.82 - Chronic fatigue, unspecified (7) Diabetes mellitus Priority: Secondary Status: Chronic Qualifiers: Diabetes mellitus type: type 2 Diabetes mellitus complication status: with kidney complications Diabetes mellitus complication detail: with chronic kidney disease Diabetes mellitus prison insulin use: with prison use Chronic kidney disease stage: stage 3 (moderate) Qualified Code(s): E11.22 - Type 2 diabetes mellitus with diabetic chronic kidney disease; N18.3 - Chronic kidney disease, stage 3 (moderate); Z79.4 - [employer] (current) use of insulin (8) HTN (hypertension) Priority: Secondary Status: Chronic Qualifiers: Hypertension type: essential hypertension Qualified Code(s): I10 - Essential (primary) hypertension (9) DVT prophylaxis Priority: Secondary Status: Acute - Discharge Medications Prescriptions: Insulin Glargine,Hum.rec.anlog [Lantus Solostar] 10 unit SQ HS #3 insuln.pen Home Medications: Aspirin [Lo-Dose Aspirin EC] 81 mg PO DAILY 02/24/16 [History] Donepezil [Aricept] 10 mg PO DAILY 02/24/16 [History] Gabapentin [Neurontin] 300 mg PO BID 02/24/16 [History] HYDROcodone/Acet 5/325 mg [[place] 5-325 mg] 1 tab PO TID PRN 02/24/16 [History] Metoprolol XL (24 HR) Succ [Toprol Xl] 25 mg PO DAILY 02/24/16 [History] [place]-3 Fatty Acids [Fish Oil] 300 mg PO DAILY 02/24/16 [History] Pravastatin Sodium [Pravachol] 80 mg PO DAILY 02/24/16 [History] Sertraline [Zoloft] 100 mg PO DAILY 02/24/16 [History] Tizanidine HCl [Zanaflex] 2 mg PO HS #30 capsule 02/25/16 [Rx] Ergocalciferol (VITAMIN D2) [Vitamin D2] 2,000 unit PO DAILY 05/22/16 [History] Multivitamin [Multi-Day Vitamins] 1 each PO DAILY 05/22/16 [History] Buspirone HCl [Buspar] 7.5 mg PO BID 06/04/16 [History] Ciclopirox [Penlac] 1 drop TP DAILY 06/04/16 [History] Cinnamon Bark [Cinnamon] 500 mg PO DAILY 06/04/16 [History] Cyclosporine [Restasis] 1 each OP DAILY 06/04/16 [History] Ferrous Sulfate [Iron] 325 mg PO DAILY 06/04/16 [History] Fluticasone Propionate Nasal [Flonase] 1 spray NS BID 06/04/16 [History] HydrALAZINE 25 mg PO BID 06/04/16 [History] Omeprazole [PriLOSEC] 20 mg PO DAILY 06/04/16 [History] Thiamine Mononitrate [Vitamin B-1] 100 mg PO DAILY 06/04/16 [History] Trazodone HCl 100 mg PO HS 06/04/16 [History] Albuterol Sulfate [Proair Hfa] 2 puff IH Q4H PRN 06/15/16 [History] Lidocaine Patch [Lidoderm 5% patch] 1 patch TP DAILY 06/15/16 [History] Insulin Glargine,Hum.rec.anlog [Lantus Solostar] 10 unit SQ HS #3 insuln.pen [Rx] Allergies/Adverse Reactions: Allergies No Known Allergies Allergy (Verified 06/04/16 10:05) Date of admission: 06/15/16 18:18 Primary care physician: Nhi Lagos MD Consults: Desmond Hernandez MD, General Surgeon Discharging clinician: Cadence Mullen Anticipated date of discharge: 06/17/16 - Patient Status Disposition: Home, Self-Care Condition: Good Functional capacity at discharge: independent ambulation Overall status at discharge: patient is back to baseline - Discharge Instructions Follow Up With: Nhi Lagos MD [Primary Care Provider] - 06/19/16 11:15 am (f/u in 1 week) Additional Instructions: PLEASE CHECK YOUR BLOOD PRESSURE TWICE DAILY (SAME TIME EVERY MORNING AND EVENING) PLEASE CHECK YOUR BLOOD SUGARS BEFORE MEALS AND AT BEDTIME PLEASE WRITE DOWN THE READINGS OF BLOOD PRESSURE AND SUGARS AND TAKE IT TO YOUR DOCTOR'S APPOINTMENT - Diet and Activity Activity: increase activity as tolerated Diet: diabetic diet Hospital course: Mr. Vidal is a 75 year old male with past medical history significant for CLL B -cell, coronary artery disease, diabetes, hypertension, CKD, HTN who presented to [facility] with on 06/15/16 with complaint of three bowel movements with bright red blood per rectum. Upon presentation to [facility], patient had Hb of 8.7, down from Hb of 13.4 on 05/09/16. Patient is s/p multiple polypectomy during colonoscopy on 06/04/16. Patient had CT abdomen which demonstrated no acute abdominal/ pelvic process. No finding to account for the history of rectal bleeding. Patient was transfused [address] Hernandez performed colonoscopy on revealing a bleeding site from a descending colon prior polypectomy (on ). Bleeding site was identified and coagulated with argon laser. Patient has had no further episodes of rectal bleeding. Patient's Hb is stable this morning at 9.6 and is at approximately same level as yesterday afternoon when Hb measured 9.4. Patient is hemodynamically stable and ready for discharge. Patient will have follow up CBC to measure H&H due to acute blood loss. He will follow up with his PCP in 1 week. - Time Spent with Patient Total time spent providing and/or coordinating discharge services: Less than 30 minutes (35 minutes including time with patient and coordinating care) - Constitutional Vitals: Temp Pulse Resp BP Pulse Ox 98.1 F 78 16 138/63 95 06/17/16 07:00 06/17/16 07:00 06/17/16 07:00 06/17/16 07:00 06/17/16 07:00 General appearance: Present: A&O X 3, answers questions appropriately - Head Head exam: Present: atraumatic, normocephalic - Eye Eye exam: Present: EOMI, PERRL, conjuntiva pink, sclera anicteric - Neck Neck exam general surgery: Present: supple, trachea midline. Absent: lymphadenopathy - Respiratory Respiratory exam: Present: CTAB. Absent: accessory muscle use, rales, rhonchi, wheezes - Cardiovascular Cardiovascular exam: Present: RRR, +S1, +S2. Absent: diastolic murmur, gallop, rubs, systolic murmur - GI/Abdominal GI/Abdominal exam: Present: normal bowel sounds, soft, no peritoneal signs. Absent: distended, tenderness - Extremities Exam Extremities exam: Present: warm, radial pulses palpable and symetrical. Absent : calf tenderness, cyanotic, pedal edema - Neurological Exam Neurological exam: Present: CN II-XII intact, oriented X3, no focal deficits. Absent: facial droop, speech deficit - Skin Skin exam: Present: dry, intact - Other Additional findings: Chest X-Ray 06/15/16 11:10 IMPRESSION: Stable cardiomegaly. No acute pulmonary disease. D/ / Danny Garcia MD / Danny Garcia MD Interpreting Provider: Danny Garcia MD Abdomen/Pelvis CT 06/15/16 12:38 IMPRESSION: 1. Stable abdominal lymphadenopathy and splenomegaly which may relate to lymphoproliferative disorder. These findings are stable compared to a prior CT abdomen/ pelvis 06/11/2013. 2. Subtle nodular contour of the liver, cirrhosis cannot be excluded. No ascites. 3. No acute abdominal/pelvic process. No finding to account for the history of rectal bleeding. D/ / 06/15/2016 14:40:07 Kee Byers MD / bcarter Interpreting Provider: Kee Byers MD - VTE Documentation of Mechanical Device: Intermittent pneumatic compression device <Cadence Mullen E - Last Filed: 06/17/16 17:52> Date of Encounter: 06/17/16 Date of admission: 06/15/16 18:18 Primary care physician: Nhi Lagos MD Hospital course: Mr. Vidal is a 75 year old male - Time Spent with Patient Total time spent providing and/or coordinating discharge services: - Constitutional Vitals: Temp Pulse Resp BP Pulse Ox 98.1 F 78 16 138/63 95 06/17/16 07:00 06/17/16 07:00 06/17/16 07:00 06/17/16 07:00 06/17/16 07:00 - Attending Attestation I examined this patient and reviewed laboratory, imaging and all diagnostic data. My medical decision-making was reviewed with Dr Dubois - Resident Physician. I agree with the documented findings, disposition and treatment plan as described above
== END 2016-06-17 12:29 | disposition home or self-care (01) | DRG 378 ==
LOC: EMEROO 10:40 → 3ANU 10:40
PROVIDERS: ADMIT Hospitalist; ATTEND Internal Medicine

== ENCOUNTER 2021-07-28 08:30 | Inpatient (IN) ==
[2021-07-28 09:42] LABS: Hematocrit 36.9 % (37.5-50.1); Hemoglobin 11.8 g/dL (12.9-16.9); Mean Corpuscular Hemoglobin 29.4 pg (28.0-33.3); Mean Corpuscular Volume 91.8 fL (83.0-100.0); Mean Platelet Volume 12.9 fL (9.4-12.4); Platelet Count 119 K/mcL (140-400); Red Blood Count 4.02 M/mcL (4.19-5.50); Red Cell Distribution Width 13.9 % (11.5-14.5)
[2021-07-28 09:48] LABS: White Blood Count 41.4 K/mcL (4.3-11.1)
[2021-07-28 10:14] LABS: Lymphocytes # 29.8 K/mcL (0.6-4.6); Monocytes # 1.2 K/mcL (0.0-1.3); Neutrophils # 10.4 K/mcL (1.6-8.9)
[2021-07-28 10:15] LABS: Platelet Estimate Slight Decrease (Normal); Smudge Cells Present (Not Present)
[2021-07-28 10:20] LABS: Albumin 3.8 g/dL (3.5-5.7); Albumin/Globulin Ratio 1.5 (1.1-2.2); Bilirubin,Direct 0.7 mg/dL (0.0-0.2); Bilirubin,Total 1.7 mg/dL (0.3-1.0); Calcium 8.8 mg/dL (8.6-10.3); Globulin 2.6 g/dL (2.4-3.5); Magnesium 1.8 mg/dL (1.6-2.6); Potassium 4.2 mEq/L (3.5-5.1); Total Protein 6.4 g/dL (6.4-8.9); Troponin I 0.03 ng/mL (< 0.04)
[2021-07-28 10:26] LABS: Bilirubin,Urine Negative (Negative); Blood,Urine Large (Negative); Clarity,Urine Clear (Clear); Color,Urine Yellow (Yellow); Glucose,Urine (UA) Normal (Normal); Ketones,Urine Trace mg/dL (Negative); Leukocyte Esterase,Urine Negative (Negative); Mucus,Urine Few per lpf (None-Few); Nitrite,Urine Negative (Negative); Protein,Urine 50 mg/dL (Neg-Trace); RBC,Urine 0-3 per hpf (0-3); Specific Gravity,Urine 1.018 (1.010-1.025); WBC,Urine 0-3 per hpf (0-3)
[2021-07-28] MEDS ORDERED: 0.9 % Sodium Chloride 1,000 ML IVC ONE ×2 (10:43→13:17)
[2021-07-28] MEDS ORDERED: Naloxone 0.4 MG/ML INJ IVP PRN (13:15)
[2021-07-28] MEDS ORDERED: Acetaminophen 325 MG TABLET PO PRN (13:15)
[2021-07-28] MEDS ORDERED: Ondansetron ODT 4 MG TAB.RAPDIS SL PRN (13:15)
[2021-07-28 16:32] LABS: Calcium 8.7 mg/dL (8.6-10.3); Magnesium 1.9 mg/dL (1.6-2.6); Phosphorous 3.4 mg/dL (2.7-4.5); Potassium 4.4 mEq/L (3.5-5.1)
[2021-07-28] MEDS ORDERED: Perflutren Lipid Microsphere 1.3 ML in 0.9 % Sodium Chloride 8.7 ML IVP PRN (16:47)
[2021-07-28] MEDS: *HR* Heparin 5,000 UNIT/ML VIAL SQ SCH (18:20)
[2021-07-28] MEDS: *HR* HYDROcodone/Acet 5/325 mg TABLET PO PRN (18:30)
[2021-07-28 19:56] LABS: Adenovirus Not Detected (Not Detect); Bordetella Pertussis Not Detected (Not Detect); Chlamydophila pneumoniae Not Detected (Not Detect); Coronavirus 229E Not Detected (Not Detect); Coronavirus HKU1 Not Detected (Not Detect); Coronavirus NL63 Not Detected (Not Detect); Coronavirus OC43 Not Detected (Not Detect); Human Metapneumovirus Not Detected (Not Detect); Human Rhinovirus/Enterovirus Not Detected (Not Detect); Influenza A Subtype 2009 H1 Not Detected (Not Detect); Influenza B Not Detected (Not Detect); Mycoplasma pneumoniae Not Detected (Not Detect); Parainfluenza Virus 1 Not Detected (Not Detect); Parainfluenza Virus 2 Not Detected (Not Detect); Parainfluenza Virus 3 Not Detected (Not Detect); Parainfluenza Virus 4 Not Detected (Not Detect); Respiratory Syncytial Virus Not Detected (Not Detect); SARS-CoV-2 Not Detected (Not Detect)
[2021-07-28] MEDS: 0.9 % Sodium Chloride 1,000 ML IVC SCH (20:38)
[2021-07-29] MEDS: *HR* HYDROcodone/Acet 5/325 mg TABLET PO PRN (00:36)
[2021-07-29] MEDS ORDERED: Acetaminophen IV 1,000 MG/100 ML BAG IVPB ONE (02:09)
[2021-07-29] MEDS: *HR* Heparin 5,000 UNIT/ML VIAL SQ SCH (04:54)
[2021-07-29] MEDS: 0.9 % Sodium Chloride 1,000 ML IVC SCH (05:02)
[2021-07-29 06:46] LABS: Mean Corpuscular HGB Conc 32.2 g/dL (31.6-35.5); Red Blood Count 3.84 M/mcL (4.19-5.50)
[2021-07-29 06:47] LABS: Hematocrit 35.4 % (37.5-50.1); Hemoglobin 11.4 g/dL (12.9-16.9); Mean Corpuscular Hemoglobin 29.7 pg (28.0-33.3); Mean Corpuscular Volume 92.2 fL (83.0-100.0); Mean Platelet Volume 12.8 fL (9.4-12.4); Platelet Count 127 K/mcL (140-400)
[2021-07-29 07:11] LABS: Albumin 3.5 g/dL (3.5-5.7); Albumin/Globulin Ratio 1.6 (1.1-2.2); Bilirubin,Total 1.5 mg/dL (0.3-1.0); Calcium 8.2 mg/dL (8.6-10.3); Globulin 2.2 g/dL (2.4-3.5); Magnesium 1.8 mg/dL (1.6-2.6); Phosphorous 3.1 mg/dL (2.7-4.5); Potassium 4.1 mEq/L (3.5-5.1); Total Protein 5.7 g/dL (6.4-8.9)
[2021-07-29] MEDS ORDERED: 0.9 % Sodium Chloride 1,000 ML IVC SCH ×2 (08:00→14:00)
[2021-07-29 08:32] LABS: Lymphocytes # 30.4 K/mcL (0.6-4.6); Monocytes # 1.5 K/mcL (0.0-1.3); Neutrophils # 6.1 K/mcL (1.6-8.9)
[2021-07-29 08:33] LABS: Platelet Estimate Slight Decrease (Normal); Smudge Cells Present (Not Present)
[2021-07-29] MEDS: cefTRIAXone 1,000 MG in Water for inj. (sterile) 10 ML IVP SCH (09:43)
[2021-07-29] MEDS: Benzonatate 100 MG CAPSULE PO PRN (09:44)
[2021-07-29] MEDS ORDERED: Azithromycin 500 MG in 0.9 % Sodium Chloride 250 ML IVPB SCH (10:00)
[2021-07-29] MEDS: Ipratropium/Albuterol Neb 3 ML IH SCH ×3 (10:01→21:40)
[2021-07-29] MEDS ORDERED: Fluticasone Propionate Nasal 50 MCG/SPRAY BOTTLE NS PRN (13:30)
[2021-07-29] MEDS ORDERED: *HR* Dextrose 50 % in Water (Syg) 50 ML SYRINGE IVP PRN (13:50)
[2021-07-29] MEDS ORDERED: Dextrose Gel 15 GM/37.5 ML TUBE PO PRN ×2 (13:50)
[2021-07-29] MEDS ORDERED: D5% in Water 1,000 ML IVC PRN (13:50)
[2021-07-29] MEDS ORDERED: *HR* Heparin 5,000 UNIT/ML VIAL SQ SCH (14:00)
[2021-07-29 14:43] LABS: Estimated Average Glucose 143 mg/dl; Hemoglobin A1C 6.6 %
[2021-07-29 15:23] LABS: Folate 19.7 ng/mL (3.0-16.0)
[2021-07-29] MEDS ORDERED: *HR* Metoprolol 5 MG/5 ML VIAL IVP ONE (15:31)
[2021-07-29 15:34] LABS: Ferritin 347 ng/mL (20-250); Iron < 10 mcg/dL (65-175); Transferrin 176 mg/dL (203-362)
[2021-07-29] MEDS ORDERED: *HR* Heparin 5,000 UNIT/ML VIAL IVP PRN ×2 (16:07)
[2021-07-29] MEDS ORDERED: *HR* Heparin 5,000 UNIT/ML VIAL IVP ONE (16:07)
[2021-07-29] MEDS: Insulin LISPRO 300 UNITS/3 ML VIAL SUBQ SCH ×2 (16:28→22:10)
[2021-07-29] MEDS ORDERED: Furosemide 20 MG/2 ML VIAL IVP ONE (16:42)
[2021-07-29 16:54] LABS: Red Cell Distribution Width 14.1 % (11.5-14.5)
[2021-07-29 16:56] LABS: Hematocrit 37.8 % (37.5-50.1); Hemoglobin 12.2 g/dL (12.9-16.9); Mean Corpuscular HGB Conc 32.3 g/dL (31.6-35.5); Mean Corpuscular Hemoglobin 29.6 pg (28.0-33.3); Mean Corpuscular Volume 91.7 fL (83.0-100.0); Mean Platelet Volume 12.1 fL (9.4-12.4); Platelet Count 146 K/mcL (140-400); Red Blood Count 4.12 M/mcL (4.19-5.50)
[2021-07-29] MEDS ORDERED: Azithromycin 250 MG TABLET PO SCH (17:00)
[2021-07-29 17:03] LABS: Heparin anti-factor XA UFH < 0.04 IU/mL (0.30-0.70)
[2021-07-29 17:04] LABS: INR 1.7; Prothrombin Time 18.8 Seconds (9.4-12.1)
[2021-07-29 17:07] LABS: White Blood Count 48.5 K/mcL (4.3-11.1)
[2021-07-29] MEDS: Heparin 25,000UNIT/250ML 1/2NS 25,000 UNIT/250 ML IV.SOLN IVC SCH (18:09)
[2021-07-30 02:17] LABS: Hematocrit 40.4 % (37.5-50.1); Hemoglobin 12.7 g/dL (12.9-16.9); Mean Corpuscular HGB Conc 31.4 g/dL (31.6-35.5); Mean Corpuscular Hemoglobin 28.5 pg (28.0-33.3); Mean Corpuscular Volume 90.8 fL (83.0-100.0); Mean Platelet Volume 12.4 fL (9.4-12.4); Platelet Count 198 K/mcL (140-400); Red Blood Count 4.45 M/mcL (4.19-5.50)
[2021-07-30 02:21] LABS: White Blood Count 77.3 K/mcL (4.3-11.1)
[2021-07-30 02:23] LABS: INR 1.6; Prothrombin Time 18.2 Seconds (9.4-12.1)
[2021-07-30 02:24] LABS: Albumin 3.9 g/dL (3.5-5.7); Albumin/Globulin Ratio 1.4 (1.1-2.2); Bilirubin,Total 1.6 mg/dL (0.3-1.0); Calcium 9.1 mg/dL (8.6-10.3); Globulin 2.7 g/dL (2.4-3.5); Total Protein 6.6 g/dL (6.4-8.9)
[2021-07-30] MEDS ORDERED: Furosemide 20 MG/2 ML VIAL IVP ONE (02:30)
[2021-07-30 02:35] LABS: Lymphocytes # 61.8 K/mcL (0.6-4.6); Monocytes # 1.6 K/mcL (0.0-1.3); Neutrophils # 13.9 K/mcL (1.6-8.9); Platelet Estimate Normal (Normal); Smudge Cells Present (Not Present)
[2021-07-30] MEDS ORDERED: *HR* Metoprolol 5 MG/5 ML VIAL IVP ONE (03:31)
[2021-07-30] MEDS: Ipratropium/Albuterol Neb 3 ML IH SCH ×2 (03:57→11:19)
[2021-07-30] MEDS: Insulin LISPRO 300 UNITS/3 ML VIAL SUBQ SCH ×4 (07:41→21:36)
[2021-07-30] MEDS ORDERED: Metoprolol XL (24 HR) Succ 50 MG TAB.ER.24H PO SCH (09:00)
[2021-07-30] MEDS: cefTRIAXone 1,000 MG in Water for inj. (sterile) 10 ML IVP SCH (09:44)
[2021-07-30] MEDS: Azithromycin 250 MG TABLET PO SCH (09:45)
[2021-07-30] MEDS: Thiamine (B-1) 100 MG TABLET PO SCH (09:46)
[2021-07-30] MEDS: Benzonatate 100 MG CAPSULE PO PRN ×2 (09:47→15:41)
[2021-07-30] MEDS ORDERED: tiZANidine 4 MG TABLET PO PRN (10:11)
[2021-07-30] MEDS ORDERED: Ipratropium/Albuterol Neb 3 ML IH PRN (11:44)
[2021-07-30 12:03] LABS: Uric Acid 5.7 mg/dL (2.3-7.6)
[2021-07-30] MEDS ORDERED: *HR* Digoxin 0.5 MG/2 ML AMPUL IVP ONE ×3 (14:06→21:40)
[2021-07-30] MEDS: Heparin 25,000UNIT/250ML 1/2NS 25,000 UNIT/250 ML IV.SOLN IVC SCH (14:18)
[2021-07-30] MEDS: Gabapentin 300 MG CAPSULE PO SCH ×2 (15:41→21:35)
[2021-07-30] MEDS: *HR* OxyCODONE Immed Rel 5 MG TABLET PO PRN (21:35)
[2021-07-30] MEDS: Lactulose Oral Soln 20 GM/30 ML UDC PO SCH (21:35)
[2021-07-30] MEDS: Insulin DETEMIR 100 UNIT/ML X5UNITS SUBQ SCH (21:37)
[2021-07-30 21:41] LABS: Sodium, Urine 33.3 mEq/L
[2021-07-31] MEDS: Benzonatate 100 MG CAPSULE PO PRN ×2 (00:44→15:15)
[2021-07-31 02:03] LABS: Basophils % 0.1 %; Hematocrit 36.2 % (37.5-50.1); Hemoglobin 11.3 g/dL (12.9-16.9); Immature Granulocytes % 0.7 % (0-4); Lymphocytes % 80.2 %; Mean Corpuscular HGB Conc 31.2 g/dL (31.6-35.5); Mean Corpuscular Hemoglobin 28.5 pg (28.0-33.3); Mean Corpuscular Volume 91.2 fL (83.0-100.0); Mean Platelet Volume 12.3 fL (9.4-12.4); Monocytes % 2.7 %; Platelet Count 199 K/mcL (140-400); Red Blood Count 3.97 M/mcL (4.19-5.50); Red Cell Distribution Width 14.1 % (11.5-14.5); Segmented Neutrophils % 16.3 %
[2021-07-31 02:04] LABS: Basophils # 0.1 K/mcL (0.0-0.2); Lymphocytes # 54.5 K/mcL (0.6-4.6); Monocytes # 1.8 K/mcL (0.0-1.3); Neutrophils # 11.1 K/mcL (1.6-8.9)
[2021-07-31 02:07] LABS: Platelet Estimate Normal (Normal); Smudge Cells Present (Not Present)
[2021-07-31 02:18] LABS: Creatine Kinase 1386 Units/L (30-223)
[2021-07-31] MEDS ORDERED: Gadolinium Contrast Agent (WT Based) IV PRN (07:40)
[2021-07-31] MEDS ORDERED: Vancomycin 1,250 MG/262.5 ML IV.SOLN IVPB ONE (07:55)
[2021-07-31] MEDS ORDERED: Vancomycin 1,500 MG/265 ML IV.SOLN IVPB SCH (08:00)
[2021-07-31] MEDS: Lactulose Oral Soln 20 GM/30 ML UDC PO SCH ×2 (08:46→22:30)
[2021-07-31] MEDS: Thiamine (B-1) 100 MG TABLET PO SCH (08:46)
[2021-07-31] MEDS: Gabapentin 300 MG CAPSULE PO SCH ×3 (08:46→22:29)
[2021-07-31] MEDS: Piperacillin/Tazobactam 3.375 GM in 0.9 % Sodium Chloride Mini Bag 100 ML IVPB SCH ×2 (08:47→16:52)
[2021-07-31] MEDS: Azithromycin 250 MG TABLET PO SCH (08:47)
[2021-07-31] MEDS: Insulin LISPRO 300 UNITS/3 ML VIAL SUBQ SCH ×4 (08:47→22:31)
[2021-07-31] MEDS: Metoprolol XL (24 HR) Succ 50 MG TAB.ER.24H PO SCH (08:54)
[2021-07-31 10:06] LABS: C-Reactive Protein 171 mg/L (Less than 10)
[2021-07-31] MEDS: Spironolactone 25 MG TABLET PO SCH (15:12)
[2021-07-31] MEDS: *HR* OxyCODONE Immed Rel 5 MG TABLET PO PRN (16:52)
[2021-07-31] MEDS: *HR* HYDROcodone/Acet 5/325 mg TABLET PO PRN (22:30)
[2021-07-31] MEDS: Insulin DETEMIR 100 UNIT/ML X5UNITS SUBQ SCH (22:31)
[2021-07-31] MEDS: GuaiFENesin Liq 200 MG/10 ML UDC PO PRN (23:13)
[2021-08-01] MEDS: Piperacillin/Tazobactam 3.375 GM in 0.9 % Sodium Chloride Mini Bag 100 ML IVPB SCH ×3 (01:51→16:07)
[2021-08-01 06:37] LABS: Albumin 3.5 g/dL (3.5-5.7); Albumin/Globulin Ratio 1.7 (1.1-2.2); Calcium 8.5 mg/dL (8.6-10.3); Globulin 2.1 g/dL (2.4-3.5); Potassium 3.9 mEq/L (3.5-5.1); Total Protein 5.6 g/dL (6.4-8.9)
[2021-08-01 06:39] LABS: Basophils % 0.1 %; Mean Platelet Volume 12.2 fL (9.4-12.4); Monocytes % 2.4 %
[2021-08-01 06:42] LABS: Basophils # 0.1 K/mcL (0.0-0.2); Eosinophils # 0.2 K/mcL (0.0-0.6); Eosinophils % 0.3 %; Hematocrit 35.5 % (37.5-50.1); Immature Granulocytes % 0.9 % (0-4); Lymphocytes # 59.3 K/mcL (0.6-4.6); Lymphocytes % 82.3 %; Mean Corpuscular Hemoglobin 29.2 pg (28.0-33.3); Mean Corpuscular Volume 94.2 fL (83.0-100.0); Monocytes # 1.7 K/mcL (0.0-1.3); Neutrophils # 10.1 K/mcL (1.6-8.9); Platelet Count 204 K/mcL (140-400); Red Blood Count 3.77 M/mcL (4.19-5.50); Red Cell Distribution Width 14.4 % (11.5-14.5)
[2021-08-01 08:22] LABS: Platelet Estimate Normal (Normal); Reactive Lymphocytes Present (Not Present)
[2021-08-01] MEDS: Insulin LISPRO 300 UNITS/3 ML VIAL SUBQ SCH ×4 (09:16→22:14)
[2021-08-01] MEDS: Metoprolol XL (24 HR) Succ 50 MG TAB.ER.24H PO SCH (09:19)
[2021-08-01] MEDS: Gabapentin 300 MG CAPSULE PO SCH ×3 (09:19→22:09)
[2021-08-01] MEDS: Spironolactone 25 MG TABLET PO SCH (09:19)
[2021-08-01] MEDS: Thiamine (B-1) 100 MG TABLET PO SCH (09:19)
[2021-08-01] MEDS: Aspirin 81 MG TAB.CHEW PO SCH (09:20)
[2021-08-01] MEDS: Azithromycin 250 MG TABLET PO SCH (09:20)
[2021-08-01] MEDS: Lactulose Oral Soln 20 GM/30 ML UDC PO SCH ×2 (09:21→22:15)
[2021-08-01] MEDS: GuaiFENesin Liq 200 MG/10 ML UDC PO PRN ×2 (09:34→16:08)
[2021-08-01] MEDS: *HR* HYDROcodone/Acet 5/325 mg TABLET PO PRN ×2 (09:34→16:07)
[2021-08-01] MEDS ORDERED: Vancomycin 1,250 MG/262.5 ML IV.SOLN IVPB SCH (10:00)
[2021-08-01] MEDS: Benzonatate 100 MG CAPSULE PO PRN (22:13)
[2021-08-01] MEDS: Insulin DETEMIR 100 UNIT/ML X5UNITS SUBQ SCH (22:14)
[2021-08-01] MEDS: *HR* OxyCODONE Immed Rel 5 MG TABLET PO PRN (22:14)
[2021-08-02 02:24] LABS: Basophils % 0.1 %; Mean Corpuscular Hemoglobin 29.1 pg (28.0-33.3)
[2021-08-02 02:26] LABS: Basophils # 0.1 K/mcL (0.0-0.2); Eosinophils % 0.4 %; Hematocrit 33.7 % (37.5-50.1); Hemoglobin 10.6 g/dL (12.9-16.9); Immature Granulocytes % 1.3 % (0-4); Lymphocytes # 49.1 K/mcL (0.6-4.6); Lymphocytes % 80.2 %; Mean Corpuscular HGB Conc 31.5 g/dL (31.6-35.5); Mean Corpuscular Volume 92.6 fL (83.0-100.0); Monocytes # 1.4 K/mcL (0.0-1.3); Monocytes % 2.3 %; Neutrophils # 9.6 K/mcL (1.6-8.9); Platelet Count 199 K/mcL (140-400); Red Blood Count 3.64 M/mcL (4.19-5.50); Red Cell Distribution Width 14.3 % (11.5-14.5); Segmented Neutrophils % 15.7 %
[2021-08-02 02:36] LABS: Albumin 3.4 g/dL (3.5-5.7); Albumin/Globulin Ratio 1.6 (1.1-2.2); Bilirubin,Total 0.7 mg/dL (0.3-1.0); Calcium 8.4 mg/dL (8.6-10.3); Globulin 2.1 g/dL (2.4-3.5); Potassium 4.2 mEq/L (3.5-5.1); Total Protein 5.5 g/dL (6.4-8.9)
[2021-08-02 02:49] LABS: Eosinophils # 0.2 K/mcL (0.0-0.6); White Blood Count 61.2 K/mcL (4.3-11.1)
[2021-08-02 03:15] LABS: Platelet Estimate Normal (Normal); Reactive Lymphocytes Present (Not Present)
[2021-08-02] MEDS: Piperacillin/Tazobactam 3.375 GM in 0.9 % Sodium Chloride Mini Bag 100 ML IVPB SCH ×4 (05:25→23:13)
[2021-08-02] MEDS: *HR* HYDROcodone/Acet 5/325 mg TABLET PO PRN ×2 (05:47→23:13)
[2021-08-02] MEDS: Insulin LISPRO 300 UNITS/3 ML VIAL SUBQ SCH ×4 (08:29→20:31)
[2021-08-02] MEDS: Azithromycin 250 MG TABLET PO SCH (09:02)
[2021-08-02] MEDS: Metoprolol XL (24 HR) Succ 50 MG TAB.ER.24H PO SCH (09:03)
[2021-08-02] MEDS: Lactulose Oral Soln 20 GM/30 ML UDC PO SCH ×2 (09:03→20:35)
[2021-08-02] MEDS: Spironolactone 25 MG TABLET PO SCH (09:03)
[2021-08-02] MEDS: Gabapentin 300 MG CAPSULE PO SCH ×3 (09:03→20:31)
[2021-08-02] MEDS: Aspirin 81 MG TAB.CHEW PO SCH (09:03)
[2021-08-02] MEDS: Thiamine (B-1) 100 MG TABLET PO SCH (09:03)
[2021-08-02] MEDS: *HR* OxyCODONE Immed Rel 5 MG TABLET PO PRN (12:37)
[2021-08-02] MEDS: Insulin DETEMIR 100 UNIT/ML X5UNITS SUBQ SCH (20:32)
[2021-08-03 01:20] LABS: Basophils % 0.1 %; Immature Granulocytes % 1.4 % (0-4)
[2021-08-03 01:22] LABS: Basophils # 0.1 K/mcL (0.0-0.2); Eosinophils # 0.3 K/mcL (0.0-0.6); Eosinophils % 0.5 %; Hematocrit 33.5 % (37.5-50.1); Hemoglobin 10.4 g/dL (12.9-16.9); Lymphocytes # 49.4 K/mcL (0.6-4.6); Lymphocytes % 80.6 %; Mean Corpuscular Hemoglobin 29.1 pg (28.0-33.3); Mean Corpuscular Volume 93.8 fL (83.0-100.0); Mean Platelet Volume 11.8 fL (9.4-12.4); Monocytes # 1.2 K/mcL (0.0-1.3); Neutrophils # 9.4 K/mcL (1.6-8.9); Platelet Count 220 K/mcL (140-400); Red Blood Count 3.57 M/mcL (4.19-5.50); Red Cell Distribution Width 14.4 % (11.5-14.5); Segmented Neutrophils % 15.4 %
[2021-08-03 01:39] LABS: BUN/Creatinine Ratio 24 (6-26); Blood Urea Nitrogen 32 mg/dL (8-23); Calcium 8.6 mg/dL (8.6-10.3); Carbon Dioxide 25 mEq/L (23-29); Chloride 108 mEq/L (98-107); Glucose 163 mg/dL (70-105); Osmolality,Calculated 300 (280-300); Potassium 4.1 mEq/L (3.5-5.1); Sodium 140 mEq/L (136-145); eGFR For African Americans > 60 (> 60); eGFR For Non-African Americans 53 (> 60)
[2021-08-03 01:40] LABS: White Blood Count 61.3 K/mcL (4.3-11.1)
[2021-08-03 02:00] LABS: Smudge Cells Present (Not Present)
[2021-08-03 02:01] LABS: Large Platelets Present (Not Present); Platelet Estimate Normal (Normal)
[2021-08-03] MEDS: Insulin LISPRO 300 UNITS/3 ML VIAL SUBQ SCH ×4 (08:17→20:40)
[2021-08-03] MEDS: Lactulose Oral Soln 20 GM/30 ML UDC PO SCH ×2 (08:27→20:40)
[2021-08-03] MEDS: Thiamine (B-1) 100 MG TABLET PO SCH (08:28)
[2021-08-03] MEDS: Aspirin 81 MG TAB.CHEW PO SCH (08:28)
[2021-08-03] MEDS: Piperacillin/Tazobactam 3.375 GM in 0.9 % Sodium Chloride Mini Bag 100 ML IVPB SCH (08:28)
[2021-08-03] MEDS: Gabapentin 300 MG CAPSULE PO SCH ×3 (08:29→20:39)
[2021-08-03] MEDS: *HR* HYDROcodone/Acet 5/325 mg TABLET PO PRN ×3 (08:29→22:52)
[2021-08-03] MEDS: Spironolactone 25 MG TABLET PO SCH (08:29)
[2021-08-03] MEDS: Metoprolol XL (24 HR) Succ 50 MG TAB.ER.24H PO SCH (08:29)
[2021-08-03] MEDS: Insulin DETEMIR 100 UNIT/ML X5UNITS SUBQ SCH (20:39)
[2021-08-04 05:03] LABS: Basophils % 0.1 %; Eosinophils % 0.4 %; Hemoglobin 10.8 g/dL (12.9-16.9); Red Cell Distribution Width 14.6 % (11.5-14.5)
[2021-08-04 05:05] LABS: Basophils # 0.1 K/mcL (0.0-0.2); Eosinophils # 0.3 K/mcL (0.0-0.6); Hematocrit 35.2 % (37.5-50.1); Immature Granulocytes % 1.5 % (0-4); Lymphocytes # 60.1 K/mcL (0.6-4.6); Lymphocytes % 81.2 %; Mean Corpuscular HGB Conc 30.7 g/dL (31.6-35.5); Mean Corpuscular Hemoglobin 28.8 pg (28.0-33.3); Mean Corpuscular Volume 93.9 fL (83.0-100.0); Mean Platelet Volume 11.4 fL (9.4-12.4); Monocytes # 1.2 K/mcL (0.0-1.3); Monocytes % 1.6 %; Platelet Count 225 K/mcL (140-400); Red Blood Count 3.75 M/mcL (4.19-5.50); Segmented Neutrophils % 15.2 %
[2021-08-04 05:11] LABS: Neutrophils # 11.3 K/mcL (1.6-8.9)
[2021-08-04 05:25] LABS: BUN/Creatinine Ratio 27 (6-26); Blood Urea Nitrogen 31 mg/dL (8-23); Calcium 8.6 mg/dL (8.6-10.3); Carbon Dioxide 24 mEq/L (23-29); Chloride 108 mEq/L (98-107); Glucose 131 mg/dL (70-105); Magnesium 1.6 mg/dL (1.6-2.6); Osmolality,Calculated 296 (280-300); Potassium 4.3 mEq/L (3.5-5.1); Sodium 139 mEq/L (136-145); eGFR For African Americans > 60 (> 60); eGFR For Non-African Americans > 60 (> 60)
[2021-08-04] MEDS: *HR* HYDROcodone/Acet 5/325 mg TABLET PO PRN ×3 (05:26→23:40)
[2021-08-04 05:38] LABS: Platelet Estimate Normal (Normal)
[2021-08-04 05:39] LABS: Smudge Cells Present (Not Present)
[2021-08-04] MEDS: Aspirin 81 MG TAB.CHEW PO SCH (10:24)
[2021-08-04] MEDS: Lactulose Oral Soln 20 GM/30 ML UDC PO SCH ×2 (10:24→21:23)
[2021-08-04] MEDS: Thiamine (B-1) 100 MG TABLET PO SCH (10:24)
[2021-08-04] MEDS: Gabapentin 300 MG CAPSULE PO SCH ×3 (10:25→21:23)
[2021-08-04] MEDS: Spironolactone 25 MG TABLET PO SCH (10:25)
[2021-08-04] MEDS: Metoprolol XL (24 HR) Succ 50 MG TAB.ER.24H PO SCH (10:25)
[2021-08-04] MEDS: Insulin LISPRO 300 UNITS/3 ML VIAL SUBQ SCH ×4 (10:26→21:24)
[2021-08-04] MEDS: Insulin DETEMIR 100 UNIT/ML X5UNITS SUBQ SCH (21:24)
[2021-08-05] MEDS: Insulin LISPRO 300 UNITS/3 ML VIAL SUBQ SCH ×4 (08:32→20:57)
[2021-08-05] MEDS: Gabapentin 300 MG CAPSULE PO SCH ×3 (08:32→20:56)
[2021-08-05] MEDS: Spironolactone 25 MG TABLET PO SCH (08:32)
[2021-08-05] MEDS: Metoprolol XL (24 HR) Succ 50 MG TAB.ER.24H PO SCH (08:32)
[2021-08-05] MEDS: Lactulose Oral Soln 20 GM/30 ML UDC PO SCH ×2 (08:33→20:56)
[2021-08-05] MEDS: Aspirin 81 MG TAB.CHEW PO SCH (08:33)
[2021-08-05] MEDS: Thiamine (B-1) 100 MG TABLET PO SCH (08:33)
[2021-08-05] MEDS: *HR* OxyCODONE Immed Rel 5 MG TABLET PO PRN (12:42)
[2021-08-05] MEDS: Insulin DETEMIR 100 UNIT/ML X5UNITS SUBQ SCH (20:57)
[2021-08-05] MEDS: *HR* HYDROcodone/Acet 5/325 mg TABLET PO PRN (21:01)
[2021-08-06 04:51] LABS: Basophils % 0.1 %; Eosinophils % 0.3 %; Mean Corpuscular Volume 92.7 fL (83.0-100.0); Monocytes % 1.7 %; Red Cell Distribution Width 14.6 % (11.5-14.5)
[2021-08-06 04:53] LABS: Basophils # 0.1 K/mcL (0.0-0.2); Eosinophils # 0.2 K/mcL (0.0-0.6); Hematocrit 37.9 % (37.5-50.1); Hemoglobin 11.7 g/dL (12.9-16.9); Immature Granulocytes % 1.7 % (0-4); Lymphocytes # 57.9 K/mcL (0.6-4.6); Lymphocytes % 80.4 %; Mean Corpuscular HGB Conc 30.9 g/dL (31.6-35.5); Mean Corpuscular Hemoglobin 28.6 pg (28.0-33.3); Mean Platelet Volume 11.6 fL (9.4-12.4); Monocytes # 1.2 K/mcL (0.0-1.3); Neutrophils # 11.4 K/mcL (1.6-8.9); Platelet Count 247 K/mcL (140-400); Red Blood Count 4.09 M/mcL (4.19-5.50); Segmented Neutrophils % 15.8 %
[2021-08-06 05:12] LABS: BUN/Creatinine Ratio 25 (6-26); Blood Urea Nitrogen 32 mg/dL (8-23); Carbon Dioxide 28 mEq/L (23-29); Chloride 101 mEq/L (98-107); Glucose 154 mg/dL (70-105); Osmolality,Calculated 290 (280-300); Potassium 4.7 mEq/L (3.5-5.1); Sodium 135 mEq/L (136-145); eGFR For African Americans > 60 (> 60); eGFR For Non-African Americans 55 (> 60)
[2021-08-06 05:27] LABS: Platelet Estimate Normal (Normal)
[2021-08-06] MEDS: Lactulose Oral Soln 20 GM/30 ML UDC PO SCH ×3 (10:33→20:43)
[2021-08-06] MEDS: Gabapentin 300 MG CAPSULE PO SCH ×3 (10:34→20:43)
[2021-08-06] MEDS: Metoprolol XL (24 HR) Succ 50 MG TAB.ER.24H PO SCH (10:34)
[2021-08-06] MEDS: Spironolactone 25 MG TABLET PO SCH (10:34)
[2021-08-06] MEDS: Thiamine (B-1) 100 MG TABLET PO SCH (10:34)
[2021-08-06] MEDS: Aspirin 81 MG TAB.CHEW PO SCH (10:34)
[2021-08-06] MEDS: Insulin LISPRO 300 UNITS/3 ML VIAL SUBQ SCH ×4 (10:36→20:43)
[2021-08-06] MEDS: *HR* HYDROcodone/Acet 5/325 mg TABLET PO PRN (10:42)
[2021-08-06] MEDS: Insulin DETEMIR 100 UNIT/ML X5UNITS SUBQ SCH (20:43)
[2021-08-06] MEDS: *HR* OxyCODONE Immed Rel 5 MG TABLET PO PRN (22:02)
[2021-08-07 01:50] LABS: Eosinophils % 0.1 %; Lymphocytes % 79.1 %; Mean Platelet Volume 11.4 fL (9.4-12.4)
[2021-08-07 01:51] LABS: Basophils # 0.1 K/mcL (0.0-0.2); Basophils % 0.1 %; Eosinophils # 0.1 K/mcL (0.0-0.6); Hematocrit 38.4 % (37.5-50.1); Hemoglobin 12.1 g/dL (12.9-16.9); Immature Granulocytes % 1.4 % (0-4); Lymphocytes # 56.9 K/mcL (0.6-4.6); Mean Corpuscular HGB Conc 31.5 g/dL (31.6-35.5); Mean Corpuscular Hemoglobin 29.1 pg (28.0-33.3); Mean Corpuscular Volume 92.3 fL (83.0-100.0); Monocytes # 1.7 K/mcL (0.0-1.3); Monocytes % 2.3 %; Platelet Count 253 K/mcL (140-400); Red Blood Count 4.16 M/mcL (4.19-5.50); Red Cell Distribution Width 14.6 % (11.5-14.5)
[2021-08-07 01:56] LABS: Neutrophils # 12.2 K/mcL (1.6-8.9)
[2021-08-07 01:58] LABS: Platelet Estimate Normal (Normal); White Blood Count 71.9 K/mcL (4.3-11.1)
[2021-08-07 02:08] LABS: Calcium 8.9 mg/dL (8.6-10.3); Potassium 5.3 mEq/L (3.5-5.1)
[2021-08-07] MEDS ORDERED: 0.9 % Sodium Chloride 500 ML IVC SCH (07:30)
[2021-08-07] MEDS: Thiamine (B-1) 100 MG TABLET PO SCH (08:51)
[2021-08-07] MEDS: Metoprolol XL (24 HR) Succ 50 MG TAB.ER.24H PO SCH (08:51)
[2021-08-07] MEDS: Gabapentin 300 MG CAPSULE PO SCH ×3 (08:51→20:12)
[2021-08-07] MEDS: Aspirin 81 MG TAB.CHEW PO SCH (08:52)
[2021-08-07] MEDS: Insulin LISPRO 300 UNITS/3 ML VIAL SUBQ SCH ×4 (08:54→20:13)
[2021-08-07] MEDS: Lactulose Oral Soln 20 GM/30 ML UDC PO SCH ×2 (09:00→20:12)
[2021-08-07] MEDS: *HR* OxyCODONE Immed Rel 5 MG TABLET PO PRN ×2 (09:03→20:32)
[2021-08-07 12:36] LABS: BUN/Creatinine Ratio 28 (6-26); Blood Urea Nitrogen 38 mg/dL (8-23); Carbon Dioxide 24 mEq/L (23-29); Chloride 103 mEq/L (98-107); Glucose 195 mg/dL (70-105); Osmolality,Calculated 290 (280-300); Potassium 5.3 mEq/L (3.5-5.1); Sodium 133 mEq/L (136-145); eGFR For African Americans > 60 (> 60); eGFR For Non-African Americans 50 (> 60)
[2021-08-07] MEDS ORDERED: Calcium Gluconate 1gm/50mL 1 GM/50 ML BAG IVPB ONE (13:38)
[2021-08-07 16:27] LABS: Influenza A PCR Negative (Negative); Influenza B PCR Negative (Negative); Resp. Syncytial Virus PCR Negative (Negative)
[2021-08-07 16:31] LABS: SARS-CoV-2 by PCR (In House) Positive (Negative)
[2021-08-07] MEDS: Insulin DETEMIR 100 UNIT/ML X5UNITS SUBQ SCH (20:18)
[2021-08-08 07:34] LABS: Calcium 8.8 mg/dL (8.6-10.3); Magnesium 1.8 mg/dL (1.6-2.6); Potassium 5.9 mEq/L (3.5-5.1)
[2021-08-08] MEDS ORDERED: SODIUM ZIRCONIUM CYCLOSILICATE 5 GM POWD.PACK PO STA (07:53)
[2021-08-08] MEDS: Insulin LISPRO 300 UNITS/3 ML VIAL SUBQ SCH ×4 (08:17→20:23)
[2021-08-08] MEDS: Lactulose Oral Soln 20 GM/30 ML UDC PO SCH ×2 (08:43→21:10)
[2021-08-08] MEDS: Metoprolol XL (24 HR) Succ 50 MG TAB.ER.24H PO SCH (08:44)
[2021-08-08] MEDS: Gabapentin 300 MG CAPSULE PO SCH ×2 (08:44→21:10)
[2021-08-08] MEDS: Aspirin 81 MG TAB.CHEW PO SCH (08:44)
[2021-08-08] MEDS: Thiamine (B-1) 100 MG TABLET PO SCH (08:44)
[2021-08-08] MEDS: *HR* HYDROcodone/Acet 5/325 mg TABLET PO PRN (08:52)
[2021-08-08] MEDS: Albumin 25% 25gram/100mL 25 GM/100 ML IV.SOLN IVPB SCH (16:27)
[2021-08-08] MEDS: *HR* OxyCODONE Immed Rel 5 MG TABLET PO PRN (18:27)
[2021-08-08 19:51] LABS: Bacteria,Urine Few per hpf (None-Few); Bilirubin,Urine Negative (Negative); Blood,Urine Negative (Negative); Clarity,Urine Clear (Clear); Color,Urine Yellow (Yellow); Glucose,Urine (UA) Normal (Normal); Hyaline Casts,Urine Moderate per lpf (None Seen); Ketones,Urine Negative (Negative); Leukocyte Esterase,Urine Negative (Negative); Mucus,Urine Few per lpf (None-Few); Nitrite,Urine Negative (Negative); PH,Urine 5.5 pH Units (5.0-8.0); Protein,Urine 30 mg/dL (Neg-Trace); RBC,Urine 0-3 per hpf (0-3); Specific Gravity,Urine 1.023 (1.010-1.025); Squamous Epithelial Cell,Urine Few per hpf (None-Few); Urobilinogen,Urine Normal (Normal); WBC,Urine 0-3 per hpf (0-3)
[2021-08-08] MEDS: Insulin DETEMIR 100 UNIT/ML X5UNITS SUBQ SCH (21:10)
[2021-08-09] MEDS: Albumin 25% 25gram/100mL 25 GM/100 ML IV.SOLN IVPB SCH ×2 (00:54→12:46)
[2021-08-09] MEDS: *HR* HYDROcodone/Acet 5/325 mg TABLET PO PRN ×3 (00:57→21:59)
[2021-08-09 06:56] LABS: Mean Corpuscular HGB Conc 31.3 g/dL (31.6-35.5)
[2021-08-09 07:06] LABS: Hematocrit 36.4 % (37.5-50.1); Hemoglobin 11.4 g/dL (12.9-16.9); Mean Corpuscular Hemoglobin 29.5 pg (28.0-33.3); Mean Corpuscular Volume 94.1 fL (83.0-100.0); Mean Platelet Volume 11.9 fL (9.4-12.4); Platelet Count 191 K/mcL (140-400); Red Blood Count 3.87 M/mcL (4.19-5.50); Red Cell Distribution Width 15.1 % (11.5-14.5)
[2021-08-09 07:54] LABS: Albumin 4.1 g/dL (3.5-5.7); Albumin/Globulin Ratio 1.9 (1.1-2.2); Bilirubin,Indirect 0.5 mg/dL (0.0-1.0); Bilirubin,Total 0.5 mg/dL (0.3-1.0); Calcium 8.9 mg/dL (8.6-10.3); Globulin 2.2 g/dL (2.4-3.5); Magnesium 1.9 mg/dL (1.6-2.6); Phosphorous 4.1 mg/dL (2.7-4.5); Potassium 5.6 mEq/L (3.5-5.1); Total Protein 6.3 g/dL (6.4-8.9); Uric Acid 7.2 mg/dL (2.3-7.6)
[2021-08-09 08:07] LABS: White Blood Count 55.4 K/mcL (4.3-11.1)
[2021-08-09 08:14] LABS: Lymphocytes # 41.6 K/mcL (0.6-4.6); Neutrophils # 13.9 K/mcL (1.6-8.9); Smudge Cells Present (Not Present)
[2021-08-09 08:15] LABS: Platelet Estimate Normal (Normal)
[2021-08-09] MEDS: Lactulose Oral Soln 20 GM/30 ML UDC PO SCH ×2 (09:30→21:54)
[2021-08-09] MEDS: Gabapentin 300 MG CAPSULE PO SCH ×2 (09:30→21:48)
[2021-08-09] MEDS: Thiamine (B-1) 100 MG TABLET PO SCH (09:30)
[2021-08-09] MEDS: Aspirin 81 MG TAB.CHEW PO SCH (09:30)
[2021-08-09] MEDS: Metoprolol XL (24 HR) Succ 50 MG TAB.ER.24H PO SCH (09:30)
[2021-08-09] MEDS: Insulin LISPRO 300 UNITS/3 ML VIAL SUBQ SCH ×4 (09:31→21:47)
[2021-08-09] MEDS: SODIUM ZIRCONIUM CYCLOSILICATE 5 GM POWD.PACK PO SCH (09:31)
[2021-08-09] MEDS: Insulin DETEMIR 100 UNIT/ML X5UNITS SUBQ SCH (21:47)
[2021-08-10] MEDS: Albumin 25% 25gram/100mL 25 GM/100 ML IV.SOLN IVPB SCH ×2 (01:44→12:55)
[2021-08-10] MEDS: *HR* OxyCODONE Immed Rel 5 MG TABLET PO PRN (03:21)
[2021-08-10] MEDS: Metoprolol XL (24 HR) Succ 50 MG TAB.ER.24H PO SCH (08:56)
[2021-08-10] MEDS: Lactulose Oral Soln 20 GM/30 ML UDC PO SCH ×2 (08:56→23:07)
[2021-08-10] MEDS: *HR* HYDROcodone/Acet 5/325 mg TABLET PO PRN (08:56)
[2021-08-10] MEDS: SODIUM ZIRCONIUM CYCLOSILICATE 5 GM POWD.PACK PO SCH (08:56)
[2021-08-10] MEDS: Thiamine (B-1) 100 MG TABLET PO SCH (08:57)
[2021-08-10] MEDS: Gabapentin 300 MG CAPSULE PO SCH ×2 (08:57→22:53)
[2021-08-10] MEDS: Aspirin 81 MG TAB.CHEW PO SCH (08:57)
[2021-08-10] MEDS: Insulin LISPRO 300 UNITS/3 ML VIAL SUBQ SCH ×4 (09:09→22:43)
[2021-08-10 09:11] LABS: Calcium 9.1 mg/dL (8.6-10.3); Potassium 4.7 mEq/L (3.5-5.1)
[2021-08-10] MEDS: *HR* Heparin 5,000 UNIT/ML VIAL SQ SCH ×3 (09:11→22:53)
[2021-08-10] MEDS: Ipratropium 1 PUFF INHALER IH SCH ×4 (10:20→20:19)
[2021-08-10] MEDS: Insulin DETEMIR 100 UNIT/ML X5UNITS SUBQ SCH (22:54)
[2021-08-11] MEDS: Ipratropium 1 PUFF INHALER IH SCH ×4 (01:17→11:08)
[2021-08-11 06:31] LABS: Calcium 9.6 mg/dL (8.6-10.3); Potassium 5.3 mEq/L (3.5-5.1)
[2021-08-11] MEDS: *HR* Heparin 5,000 UNIT/ML VIAL SQ SCH ×2 (06:38→13:12)
[2021-08-11] MEDS: Insulin LISPRO 300 UNITS/3 ML VIAL SUBQ SCH ×2 (09:04→13:12)
[2021-08-11] MEDS: Gabapentin 300 MG CAPSULE PO SCH (10:34)
[2021-08-11] MEDS: SODIUM ZIRCONIUM CYCLOSILICATE 5 GM POWD.PACK PO SCH (10:34)
[2021-08-11] MEDS: Aspirin 81 MG TAB.CHEW PO SCH (10:34)
[2021-08-11] MEDS: Thiamine (B-1) 100 MG TABLET PO SCH (10:34)
[2021-08-11] MEDS: Metoprolol XL (24 HR) Succ 50 MG TAB.ER.24H PO SCH (10:34)
[2021-08-11] MEDS: Lactulose Oral Soln 20 GM/30 ML UDC PO SCH (10:37)
[2021-08-11] MEDS ORDERED: *HR* OxyCODONE Immed Rel 5 MG TABLET PO ONE (12:38)
[2021-08-11 13:34] VITALS: BP 146/87; PULSE 94; TEMP 97.4; O2SAT 95
== END 2021-08-11 14:17 | disposition home or self-care (01) | DRG 564 ==
LOC: EMEROOARM 08:30 → 3ANU 08:30 → SUATTDRO 14:58
PROVIDERS: ADMIT Internal Medicine; ATTEND General Practice